=== PATIENT | female | born 1995 | race Caucasian/White ===

== ENCOUNTER 2019-06-29 23:52 | Emergency (ER) | payer OTHER ==
[2019-06-30] MEDS ORDERED: LIDOCAINE 1% W/EPI 1:100,000 MDV 20 ML VIAL ONE (01:14)
--- NOTE | 2019-06-30 01:16 | ER ---
Nurse's Notes [facility] Name: Nguyen Patel Age: 23 yrs Sex: Female : 1995 Arrival Date: 06/29/2019 Time: 23:55 Bed 5 Private MD: Diagnosis: Personal history of retained foreign body fully removed-implanon Presentation: 06/30 00:21 Presenting complaint: Patient states: Reports she tried to cut out her control ea implant out of her arm last night. States "this thing hurts I want it out". Transition of care: patient was not received from another setting of care. Onset of symptoms was June 30, 2019. Risk Assessment: Do you want to hurt yourself or someone else? Patient reports no desire to harm self or others. Initial Sepsis Screen: Does the patient meet any 2 criteria? No. Patient's initial sepsis screen is negative. Does the patient have a suspected source of infection? No. Patient's initial sepsis screen is negative. Care prior to arrival: None. 00:21 Method Of Arrival: Ambulatory ea 00:21 Acuity: FEDE 3 ea Triage Assessment: 00:24 General: Appears in no apparent distress. Behavior is appropriate for age. Pain: ea Complains of pain in left bicep. Neuro: Level of Consciousness is awake, alert, obeys commands, Oriented to person, place, time, situation. Cardiovascular: Patient's skin is warm and dry. Respiratory: Airway is patent Respiratory effort is even, unlabored, Respiratory pattern is regular, symmetrical. Derm: Reports pain in the left upper arm. Historical: - Allergies: 00:23 No Known Allergies; ea - Home Meds: 00:23 None [Active]; ea - PMHx: 00:23 None; ea - PSHx: 00:23 None; ea - Immunization history:: Adult Immunizations up to date. - Coronavirus screen:: The patient has NOT traveled to [place] in the past 14 days. Proceed with normal triage process as indicated. - Social history:: Smoking status: Patient denies any tobacco usage or history of. - Family history:: not pertinent. - Ebola Screening: : No symptoms or risks identified at this time. Screenin:22 Abuse screen: Denies threats or abuse. Nutritional screening: No deficits noted. ea Tuberculosis screening: No symptoms or risk factors identified. Fall Risk None identified. Assessment: 00:24 Reassessment: see triage assessment. ea 01:41 Reassessment: Patient and/or family updated on plan of care and expected duration. Pain ea level reassessed. Patient is alert, oriented x 3, equal unlabored respirations, skin warm/dry/pink. Discharge instruction given to patient, verbalized the understanding of instruction. Pt left ED ambulatory accompanied by mother. Vital Signs: 00:24 BP 130 / 88; Pulse 89; Resp 18; Temp 97.6; Pulse Ox 98% on R/A; Weight 108.86 kg; ea Height 5 ft. 4 in. (162.56 cm); Pain 8/10; 00:24 Body Mass Index 41.20 (108.86 kg, 162.56 cm) ea ED Course: 06/29 23:55 Patient arrived in ED. ag3 06/30 00:13 Rafael Jimenez, RN is Primary Nurse. jb4 00:22 Triage completed. ea 00:23 Arm band placed on right wrist. Patient placed in an exam room, on a stretcher, on ea pulse oximetry. 00:23 Patient has correct armband on for positive identification. Bed in low position. Call ea light in reach. 00:59 Humble Amaya MD is Attending Physician. dex 01:14 Octavio Garrison MD is Referral Physician. dex 01:39 No provider procedures requiring assistance completed. Patient did not have IV access ea during this emergency room visit. Administered Medications: 01:20 Drug: Lidocaine-Epinephrine -1%: (1:100,000) 3 ml {Note: administered by provider.} ea Volume: 20 ml; Route: Infiltration; 01:39 Drug: Neosporin Ointment 1 application Route: Topical; Site: wound; ea Outcome: 01:15 Discharge ordered by . dex 01:40 Discharged to home ambulatory, with family. ea 01:40 Condition: stable 01:40 Discharge instructions given to patient, Instructed on discharge instructions, follow up and referral plans. Demonstrated understanding of instructions, follow-up care. 01:41 Patient left the ED. ea Signatures: Humble Amaya MD MD cha Bryson, James, RN RN jb4 Marybel Montano RN RN Jossie Daily 3
--- NOTE | 2019-06-30 01:16 | EDPHYS ---
Physician Documentation [facility] Name: Nguyen Patel Age: 23 yrs Sex: Female : 1995 Arrival Date: 06/29/2019 Time: 23:55 Bed 5 Private MD: ED Physician Humble Amaya HPI: 06/30 01:08 This 23 yrs old Female presents to ER via Ambulatory with complaints of Arm dex Pain. 01:08 The patient or guardian complains of pain. The complaints affect the left tricep. dex Context: The problem was sustained at an unknown location. Onset: The symptoms/episode began/occurred 1 week(s) ago. Treatment prior to arrival includes: no previous treatment. Associated signs and symptoms: The patient has no apparent associated signs or symptoms. Historical: - Allergies: 00:23 No Known Allergies; ea - Home Meds: 00:23 None [Active]; ea - PMHx: 00:23 None; ea - PSHx: 00:23 None; ea - Immunization history:: Adult Immunizations up to date. - Coronavirus screen:: The patient has NOT traveled to [place] in the past 14 days. Proceed with normal triage process as indicated. - Social history:: Smoking status: Patient denies any tobacco usage or history of. - Family history:: not pertinent. - Ebola Screening: : No symptoms or risks identified at this time. ROS: 01:08 Constitutional: Negative for fever, chills, and weight loss, Eyes: Negative for injury, dex pain, redness, and discharge, ENT: Negative for injury, pain, and discharge, Neck: Negative for injury, pain, and swelling, Cardiovascular: Negative for chest pain, palpitations, and edema, Respiratory: Negative for shortness of breath, cough, wheezing, and pleuritic chest pain, Abdomen/GI: Negative for abdominal pain, nausea, vomiting, diarrhea, and constipation, Back: Negative for injury and pain, : Negative for injury, bleeding, discharge, and swelling, Skin: Negative for injury, rash, and discoloration, Neuro: Negative for headache, weakness, numbness, tingling, and seizure. 01:08 MS/extremity: Positive for pain, of the left tricep. Exam: 01:08 Constitutional: This is a well developed, well nourished patient who is awake, alert, dex and in no acute distress. Head/Face: Normocephalic, atraumatic. Eyes: Pupils equal round and reactive to light, extra-ocular motions intact. Lids and lashes normal. Conjunctiva and sclera are non-icteric and not injected. Cornea within normal limits. Periorbital areas with no swelling, redness, or edema. ENT: Nares patent. No nasal discharge, no septal abnormalities noted. Tympanic membranes are normal and external auditory canals are clear. Oropharynx with no redness, swelling, or masses, exudates, or evidence of obstruction, uvula midline. Mucous membranes moist. Neck: Trachea midline, no thyromegaly or masses palpated, and no cervical lymphadenopathy. Supple, full range of motion without nuchal rigidity, or vertebral point tenderness. No Meningismus. Chest/axilla: Normal chest wall appearance and motion. Nontender with no deformity. No lesions are appreciated. Cardiovascular: Regular rate and rhythm with a normal S1 and S2. No gallops, murmurs, or rubs. Normal PMI, no JVD. No pulse deficits. Respiratory: Lungs have equal breath sounds bilaterally, clear to auscultation and percussion. No rales, rhonchi or wheezes noted. No increased work of breathing, no retractions or nasal flaring. Abdomen/GI: Soft, non-tender, with normal bowel sounds. No distension or tympany. No guarding or rebound. No evidence of tenderness throughout. Back: No spinal tenderness. No costovertebral tenderness. Full range of motion. Female : Normal external genitalia. Skin: Warm, dry with normal turgor. Normal color with no rashes, no lesions, and no evidence of cellulitis. Neuro: Awake and alert, GCS 15, oriented to person, place, time, and situation. Cranial nerves II-XII grossly intact. Motor strength 5/5 in all extremities. Sensory grossly intact. Cerebellar exam normal. Normal gait. Psych: Awake, alert, with orientation to person, place and time. Behavior, mood, and affect are within normal limits. 01:08 Musculoskeletal/extremity: ROM: no acute changes, intact in all extremities, Circulation is intact in all extremities. Sensation intact. Compartment Syndrome exam of affected extremity: is normal. DVT Exam: no swelling, negative Homans' sign noted on exam, no appreciated bluish discoloration, no erythema, no increased warmth, pain, tenderness. Vital Signs: 00:24 BP 130 / 88; Pulse 89; Resp 18; Temp 97.6; Pulse Ox 98% on R/A; Weight 108.86 kg; ea Height 5 ft. 4 in. (162.56 cm); Pain 8/10; 00:24 Body Mass Index 41.20 (108.86 kg, 162.56 cm) ea Procedures: 01:12 Foreign Body Removal: implanon removal. [facility] 01:16 Foreign Body Removal: from the left arm, by incising to remove, Dressinx4s were dex used to dress the wound, The patient tolerated the removal well. MDM: 00:59 Patient medically screened. [facility] 01:12 Data reviewed: vital signs, nurses notes. [facility] 06/30 01:08 Order name: Vicryl, Sutures; Complete Time: 01:39 [facility] 06/30 01:08 Order name: Prolene, Sutures; Complete Time: 01:11 [facility] 06/30 01:08 Order name: Dressing - Wound; Complete Time: 01:11 [facility] 06/30 01:08 Order name: Gloves, Sterile; Complete Time: 01:39 [facility] 06/30 01:08 Order name: Setup Suture Tray; Complete Time: 01:39 [facility] Administered Medications: 01:20 Drug: Lidocaine-Epinephrine -1%: (1:100,000) 3 ml {Note: administered by provider.} ea Volume: 20 ml; Route: Infiltration; 01:39 Drug: Neosporin Ointment 1 application Route: Topical; Site: wound; ea Disposition: 06/30/19 01:15 Discharged to Home. Impression: Personal history of retained foreign body fully removed - implanon. - Condition is Stable. - Discharge Instructions: Foreign Body. - Medication Reconciliation Form, Thank You Letter, Antibiotic Education, Prescription Opioid Use form. - Follow up: Private Physician; When: 2 - 3 days; Reason: Recheck today's complaints, Continuance of care, Re-evaluation by your physician. Follow up: Octavio Garrison MD; When: 2 - 3 days; Reason: Recheck today's complaints, Re-evaluation by your physician. - Problem is new. - Symptoms have improved. Signatures: Humble Amaya MD MD cha Antunez, Elena, RN RN ea Corrections: (The following items were deleted from the chart) 01:41 01:15 06/30/2019 01:15 Discharged to Home. Impression: Personal history of retained ea foreign body fully removed - implanon. Condition is Stable. Forms are Medication Reconciliation Form, Thank You Letter, Antibiotic Education, Prescription Opioid Use. Follow up: Private Physician; When: 2 - 3 days; Reason: Recheck today's complaints, Continuance of care, Re-evaluation by your physician. Follow up: Octavio Garrison; When: 2 - 3 days; Reason: Recheck today's complaints, Re-evaluation by your physician. Problem is new. Symptoms have improved. dxe
[2019-06-30 02:03] VITALS: BP 130/88; TEMP 97.6; O2SAT 98
== END 2019-06-30 01:41 | disposition home or self-care (01) ==
LOC: ER 23:52
PROC: 0HCCXZZ Extirpation of Matter from Left Upper Arm Skin, External Approach (ICD-10-PCS; principal; 2019-06-30)
DX: M79.602 Pain in left arm (principal); Z87.821 Personal history of retained foreign body fully removed
CPT/HCPCS: 99283

== ENCOUNTER 2019-07-04 21:27 | Emergency (ER) | payer OTHER ==
--- OUTSIDE RECORDS SUMMARY | 2019-07-04 21:29 | XMS REPORT | Continuity of Care Document ---
:1995 Author Organization [facility] Address [address] [place] [address] Phone Unavailable Care Team Providers Name Role Phone PHYSICIAN, NO Primary Care Physician Unavailable Insurance Providers Guarantor Ihsan Patel Address [id number] [address] [place] [address] Email NONE Payer [facility] Policy Number [id number] Subscriber's Name Ihsan Patel Relationship Self / Same As Patient Group Number NA Group Name NA Advance Directives Directive Response Recorded Date/Time Patient/Family Given Education Material R/T Y - 10/01/18.....SBM 10/01/18 5 :05pm Directives? Chief Complaint and Reason for Visit Chief Complaint HEENTL Reason for Visit Viral pharyngitis Problems Active ProblemsNo active problem information available. Past Problems Medical Problem Onset Date Status Cellulitis Unknown Acute Viral pharyngitis Unknown Acute Medications No medication information available. Social History Smoking Status Start Date Stop Date Former smoker Hospital Discharge Instructions No hospital discharge instruction information available. Plan of Care Discharge Date 10/01/18 6:40pm Instructions/Education Provided Pharyngitis, [id number] Forms Provided Portal Welcome Letter Prescriptions See Medication Section Referrals NO PHYSICIAN Additional Instructions/Education DRINK PLENTY OF FLUIDS USE TYLENOL OR MOTRIN DIRECTED FOR PAIN. FOLLOW UP WITH YOUR PRIMARY CARE PROVIDER IN 2-3 RETURN TO THE ER IF YOUR SYMPTOMS WORSEN Functional Status No functional status information available. Allergies, Adverse Reactions, Alerts No known allergies. Immunizations No immunization information available. Vital Signs Acute Vital Signs Vital Response Date/Time Blood Pressure 124/80 mm Hg 10/01/2018 6:48pm Pulse Pulse Rate (adult) 101 beats per minute (60 - 100) 10/01/2018 6:48pm Respiratory Rate 16 breaths per minute (10 - 24) 10/01/2018 6:48pm Temperature Source Oral 10/01/2018 6:48pm Height 5 ft 4 in 10/01/2018 4:43pm Weight 210 lb 10/01/2018 4:43pm Body Mass Index 36.0 kg/m^2 10/01/2018 4:43pm Results No relevant diagnostic test, laboratory data and/or discharge summary information available. Procedures No procedure information available. Encounters Encounter Location Arrival/Admit Date Discharge/Depart Date Attending Provider Departed [place] 10/01/18 4:27pm 10/01/18 6:40pm VIGNESH REGALADO MD Emergency Room [facility] Recent Diagnosis
[2019-07-04] MEDS ORDERED: ALBUTEROL 2.5 MG/3 ML NEB SOL ONE (22:50)
[2019-07-04] MEDS ORDERED: PEN G BENZ LA 1.2MU/2ML SYRINGE IM ONE (23:09)
--- NOTE | 2019-07-05 01:50 | EDPHYS ---
Physician Documentation [facility] Name: Nguyen Patel Age: 23 yrs Sex: Female : 1995 Arrival Date: 07/04/2019 Time: 21:30 Bed 8 Private MD: ED Physician Gregg Fernandez HPI: 07/05 02:24 This 23 yrs old Female presents to ER via Ambulatory with complaints of Flu Symptoms. snw 02:24 The patient or guardian reports cough, flu symptoms, low-grade fever, myalgias, no snw appetite. Onset: The symptoms/episode began/occurred suddenly, 4 day(s) ago, and became persistent. Associated signs and symptoms: Pertinent positives: fever, sore throat. Severity of symptoms: At their worst the symptoms were moderate. It is unknown whether or not the patient has had similar symptoms in the past. The patient has been recently seen by a physician: with different complaint(s), control removed. 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 - Coronavirus screen:: The patient has NOT traveled to [place] in the past 14 days. The patient has NOT had contact with known/suspected case of Coronavirus?. - Social history:: Smoking status: Patient denies any tobacco usage or history of. - Ebola Screening: : Patient negative for fever greater than or equal to 101.5 degrees Fahrenheit, and additional compatible Ebola Virus Disease symptoms Patient denies exposure to infectious person Patient denies travel to an Ebola-affected area in the 21 days before illness onset No symptoms or risks identified at this time. ROS: 07/05 02:22 Eyes: Negative for injury, pain, redness, and discharge. snw Neck: Negative for injury, pain, and swelling, Cardiovascular: Negative for chest pain, palpitations, and edema. Abdomen/GI: Negative for abdominal pain, nausea, vomiting, diarrhea, and constipation, Back: Negative for injury and pain, : Negative for injury, bleeding, discharge, and swelling, MS/Extremity: Negative for injury and deformity, Skin: Negative for injury, rash, and discoloration, Neuro: Negative for headache, weakness, numbness, tingling, and seizure. Constitutional: Positive for chills, fever, malaise. ENT: Positive for sinus congestion, sore throat. Respiratory: Positive for cough. Exam: 02:21 Constitutional: This is a well developed, well nourished patient who is awake, alert, snw and in no acute distress. Head/Face: Normocephalic, atraumatic. Eyes: Pupils equal round and reactive to light, extra-ocular motions intact. Lids and lashes normal. Conjunctiva and sclera are non-icteric and not injected. Cornea within normal limits. Periorbital areas with no swelling, redness, or edema. Neck: Trachea midline, no thyromegaly or masses palpated, and no cervical lymphadenopathy. Supple, full range of motion without nuchal rigidity, or vertebral point tenderness. No Meningismus. Chest/axilla: Normal chest wall appearance and motion. Nontender with no deformity. No lesions are appreciated. Cardiovascular: Regular rate and rhythm with a normal S1 and S2. No gallops, murmurs, or rubs. Normal PMI, no JVD. No pulse deficits. Respiratory: Lungs have equal breath sounds bilaterally, clear to auscultation and percussion. No rales, rhonchi noted. Expiratory wheezes noted. + cough. No increased work of breathing, no retractions or nasal flaring. Abdomen/GI: Soft, non-tender, with normal bowel sounds. No distension or tympany. No guarding or rebound. No evidence of tenderness throughout. Back: No spinal tenderness. No costovertebral tenderness. Full range of motion. Skin: Warm, dry with normal turgor. Normal color with no rashes, no lesions, and no evidence of cellulitis. MS/ Extremity: Pulses equal, no cyanosis. Neurovascular intact. Full, normal range of motion. Neuro: Awake and alert, GCS 15, oriented to person, place, time, and situation. Cranial nerves II-XII grossly intact. Motor strength 5/5 in all extremities. Sensory grossly intact. Cerebellar exam normal. Normal gait. Psych: Awake, alert, with orientation to person, place and time. Behavior, mood, and affect are within normal limits. 02:21 ENT: External ear(s): are unremarkable, TM's: are normal, Nose: is normal, Mouth: is normal, Posterior pharynx: swelling, that is mild, erythema, that is moderate, Voice: is normal. Vital Signs: 07/04 21:41 BP 123 / 89; Pulse 88; Resp 16 S; Temp 97.8(TE); Pulse Ox 98% on R/A; Weight 127.01 kg ca1 (R); Height 5 ft. 3 in. (160.02 cm); 23:20 BP 120 / 87; Pulse 89; Resp 16; Pulse Ox 100% on R/A; jb4 21:41 Body Mass Index 49.60 (127.01 kg, 160.02 cm) ca1 MDM: 22:30 Patient medically screened. snw 07/05 02:23 Data reviewed: vital signs, nurses notes. Data interpreted: Pulse oximetry: on room air snw is 100 %. Interpretation: normal. Counseling: I had a detailed discussion with the patient and/or guardian regarding: the historical points, exam findings, and any diagnostic results supporting the discharge/admit diagnosis, lab results, the need for outpatient follow up, to return to the emergency department if symptoms worsen or persist or if there are any questions or concerns that arise at home. Special discussion: Based on the history and exam findings, there is no indication for further emergent testing or inpatient evaluation. I discussed with the patient/guardian the need to see the primary care provider for further evaluation of the symptoms. ED course: Mom states pt refuses to finish course of medications. Will give Bicillin. 07/04 22:30 Order name: PO challenge; Complete Time: 22:37 snw Administered Medications: 07/04 22:51 Drug: Albuterol 2.5 mg Route: Inhalation; jb4 23:18 Follow up: Response: No adverse reaction; Wheezing diminished jb4 23:12 Drug: Bicillin L-A 1.2 million units Route: IM; Site: right gluteus; jb4 23:17 Follow up: Response: Medication administered at discharge. jb4 Disposition: 07/05 04:01 Co-signature as Attending Physician, Gregg Fernandez MD. pkl Disposition: 07/04/19 23:01 Discharged to Home. Impression: Streptococcal pharyngitis. - Condition is Stable. - Discharge Instructions: Acute Bronchitis, Adult, Strep Throat. - Work release form, Medication Reconciliation Form, Thank You Letter, Antibiotic Education, Prescription Opioid Use form. - Follow up: Emergency Department; When: As needed; Reason: Worsening of condition. Follow up: Private Physician; When: 2 - 3 days; Reason: Recheck today's complaints, Continuance of care, Re-evaluation by your physician. Signatures: Gregg Fernandez MD MD pkl Therrien, Shelly, FOLDING RULES PRINTING MACHINE OPERATOR-C FOLDING RULES PRINTING MACHINE OPERATOR-Csnw Jennifer Garcia RN RN lp1 Rafael Jimenez, ISATU RN jb4 Carley White RN RN ca1 Corrections: (The following items were deleted from the chart) 07/04 23:30 23:01 07/04/2019 23:01 Discharged to Home. Impression: Streptococcal pharyngitis. lp1 Condition is Stable. Forms are Medication Reconciliation Form, Thank You Letter, Antibiotic Education, Prescription Opioid Use. Follow up: Emergency Department; When: As needed; Reason: Worsening of condition. Follow up: Private Physician; When: 2 - 3 days; Reason: Recheck today's complaints, Continuance of care, Re-evaluation by your physician. snw 07/05 02:22 02:21 Constitutional: This is a well developed, well nourished patient who is awake, snw alert, and in no acute distress. Head/Face: Normocephalic, atraumatic. Eyes: Pupils equal round and reactive to light, extra-ocular motions intact. Lids and lashes normal. Conjunctiva and sclera are non-icteric and not injected. Cornea within normal limits. Periorbital areas with no swelling, redness, or edema. Neck: Trachea midline, no thyromegaly or masses palpated, and no cervical lymphadenopathy. Supple, full range of motion without nuchal rigidity, or vertebral point tenderness. No Meningismus. Chest/axilla: Normal chest wall appearance and motion. Nontender with no deformity. No lesions are appreciated. Cardiovascular: Regular rate and rhythm with a normal S1 and S2. No gallops, murmurs, or rubs. Normal PMI, no JVD. No pulse deficits. Respiratory: Lungs have equal breath sounds bilaterally, clear to auscultation and percussion. No rales, rhonchi or wheezes noted. No increased work of breathing, no retractions or nasal flaring. Abdomen/GI: Soft, non-tender, with normal bowel sounds. No distension or tympany. No guarding or rebound. No evidence of tenderness throughout. Back: No spinal tenderness. No costovertebral tenderness. Full range of motion. Skin: Warm, dry with normal turgor. Normal color with no rashes, no lesions, and no evidence of cellulitis. MS/ Extremity: Pulses equal, no cyanosis. Neurovascular intact. Full, normal range of motion. Neuro: Awake and alert, GCS 15, oriented to person, place, time, and situation. Cranial nerves II-XII grossly intact. Motor strength 5/5 in all extremities. Sensory grossly intact. Cerebellar exam normal. Normal gait. Psych: Awake, alert, with orientation to person, place and time. Behavior, mood, and affect are within normal limits. snw
--- NOTE | 2019-07-05 01:51 | ER ---
Nurse's Notes [facility] Name: Nguyen Patel Age: 23 yrs Sex: Female : 1995 Arrival Date: 07/04/2019 Time: 21:30 Bed 8 Private MD: Diagnosis: Streptococcal pharyngitis Presentation: 07/04 21:39 Presenting complaint: Patient states: Body aches, cough and congestion x 5 days. ca1 Reports nausea. Denies vomiting and diarrhea. Denies fever but reports feeling hot. Transition of care: patient was not received from another setting of care. Onset of symptoms was July 04, 2019. Risk Assessment: Do you want to hurt yourself or someone else? Patient reports no desire to harm self or others. Initial Sepsis Screen: Does the patient meet any 2 criteria? No. Patient's initial sepsis screen is negative. Does the patient have a suspected source of infection? No. Patient's initial sepsis screen is negative. Care prior to arrival: None. 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 - Coronavirus screen:: The patient has NOT traveled to [place] in the past 14 days. The patient has NOT had contact with known/suspected case of Coronavirus?. - Social history:: Smoking status: Patient denies any tobacco usage or history of. - Ebola Screening: : Patient negative for fever greater than or equal to 101.5 degrees Fahrenheit, and additional compatible Ebola Virus Disease symptoms Patient denies exposure to infectious person Patient denies travel to an Ebola-affected area in the 21 days before illness onset No symptoms or risks identified at this time. Screenin:05 Abuse screen: Denies threats or abuse. Nutritional screening: No deficits noted. jb4 Tuberculosis screening: No symptoms or risk factors identified. Fall Risk None identified. Assessment: 22:00 General: Appears in no apparent distress. uncomfortable, Behavior is calm, cooperative, jb4 appropriate for age. Pain: Complains of pain in Generalized Pain does not radiate. Pain currently is 4 out of 10 on a pain scale. Quality of pain is described as aching. Neuro: Level of Consciousness is awake, alert, obeys commands, Oriented to person, place, time, situation. Cardiovascular: Patient's skin is warm and dry. Respiratory: Airway is patent Respiratory effort is even, unlabored, Respiratory pattern is regular, symmetrical. GI: No signs and/or symptoms were reported involving the gastrointestinal system. : No signs and/or symptoms were reported regarding the genitourinary system. EENT: Throat is clear is reddened has enlarged tonsils bilaterally with gag reflex present. Derm: Skin is intact, Skin is pink, warm \\T\\ dry. Musculoskeletal: Circulation, motion, and sensation intact. Range of motion: intact in all extremities. 22:52 Reassessment: Patient appears in no apparent distress at this time. Patient and/or jb4 family updated on plan of care and expected duration. Pain level reassessed. Patient is alert, oriented x 3, equal unlabored respirations, skin warm/dry/pink. Respiratory: Breath sounds are clear in right upper lobe, left upper lobe, left lower lobe, left posterior upper lobe, right posterior upper lobe and left posterior lower lobe Breath sounds with wheezes in right middle lobe, right lower lobe, right posterior middle lobe and right posterior lower lobe. 23:18 Reassessment: Refused to wait for shot time. Pt states" I have never had a reaction to jb4 Bicillin before." Verbalized understanding of d/c and follow up instructions. Ambulated out of ED with steady gait w/ mother. alert and orientedx 4. Vital Signs: 21:41 BP 123 / 89; Pulse 88; Resp 16 S; Temp 97.8(TE); Pulse Ox 98% on R/A; Weight 127.01 kg ca1 (R); Height 5 ft. 3 in. (160.02 cm); 23:20 BP 120 / 87; Pulse 89; Resp 16; Pulse Ox 100% on R/A; jb4 21:41 Body Mass Index 49.60 (127.01 kg, 160.02 cm) ca1 ED Course: 21:30 Patient arrived in ED. jg7 21:34 Yuliana Walsh FNP-C [facility]. snw 21:34 Gregg Fernandez MD is Attending Physician. snw 21:40 Triage completed. ca1 21:41 Arm band placed on right wrist. ca1 21:45 Rafael Jimenez, RN is Primary Nurse. jb4 22:05 Patient has correct armband on for positive identification. Bed in low position. Call jb4 light in reach. Side rails up X 1. Pulse ox on. NIBP on. 22:05 Flu and/or RSV swab sent to lab. Strep swab sent to lab. jb4 23:20 No provider procedures requiring assistance completed. Patient did not have IV access jb4 during this emergency room visit. Administered Medications: 22:51 Drug: Albuterol 2.5 mg Route: Inhalation; jb4 23:18 Follow up: Response: No adverse reaction; Wheezing diminished jb4 23:12 Drug: Bicillin L-A 1.2 million units Route: IM; Site: right gluteus; jb4 23:17 Follow up: Response: Medication administered at discharge. jb4 Outcome: 23:01 Discharge ordered by . snw 23:20 Discharged to home ambulatory, with family. jb4 23:20 Condition: stable 23:20 Discharge instructions given to patient, family, Instructed on discharge instructions, follow up and referral plans. Demonstrated understanding of instructions, follow-up care. 23:30 Patient left the ED. lp1 Signatures: Yuliana Walsh, CHILD CARE CENTER ADMINISTRATOR-C CHILD CARE CENTER ADMINISTRATOR-Csnw Jennifer Garcia RN RN lp1 Rafael Jimenez, RN ISATU jbCarley Hernandez RN RN ca1 Leslie Diaz jg7 Corrections: (The following items were deleted from the chart) 23:21 23:18 Reassessment: Refused to wait for shot time. Pt states" I have never had a jb4 reaction to Bicillin before." Verbalized understanding of d/c and follow up instructions. Ambulated out of ED with steady gait w/ mother. jb4
[2019-07-05 03:42] VITALS: TEMP 97.8
[2019-07-05 03:58] VITALS: BP 120/87; O2SAT 100
== END 2019-07-04 23:30 | disposition home or self-care (01) ==
LOC: ER 21:27
DX: J02.0 Streptococcal pharyngitis (principal)
CPT/HCPCS: 87081; 87804 ×2; 96372; 99284; J0561

== ENCOUNTER 2020-08-14 15:03 | Emergency (ER) | payer OTHER ==
--- NOTE | 2020-08-14 17:07 | ER ---
Nurse's Notes [facility] Name: Nguyen Patel Age: 24 yrs Sex: Female : 1995 Arrival Date: 08/14/2020 Time: 15:09 Bed Waiting Private MD: Diagnosis: Presentation: 08/14 15:22 Chief complaint: Patient states: Loss of taste of smell, MORAN, and sore throat for 1 day. ll1 Coronavirus screen: Client denies travel out of the [place] in the last 14 days. fatigue, headache, sore throat, loss of taste or smell, Client presents with at least one sign or symptom that may indicate coronavirus-19. Standard/surgical mask placed on the client. Ebola Screen: Patient denies travel to an Ebola-affected area in the 21 days before illness onset. Initial Sepsis Screen: Does the patient meet any 2 criteria? HR > 90 bpm. No. Patient's initial sepsis screen is negative. Does the patient have a suspected source of infection? Yes: Other: MORAN/loss of taste and smell. Risk Assessment: Do you want to hurt yourself or someone else? Patient reports no desire to harm self or others. Onset of symptoms was August 14, 2020. 15:22 Method Of Arrival: Ambulatory ll1 15:22 Acuity: FEDE 3 ll1 Historical: - PMHx: 15:25 Asthma; ll1 - Immunization history:: Flu vaccine is not up to date. - Social history:: Smoking status: Patient denies any tobacco usage or history of. Vital Signs: 15:22 BP 146 / 100; Pulse 111; Resp 17; Temp 97.5; Pulse Ox 97% ; Pain 6/10; ll1 ED Course: 15:09 Patient arrived in ED. ds1 15:16 Radha Sommers FNP-C is [facility]. kb 15:16 Pio Beltran MD is Attending Physician. kb 15:24 Triage completed. ll1 15:25 Arm band placed on Patient notified of wait time. ll1 Administered Medications: No medications were administered Outcome: 17:06 Patient left the ED. ll1 Signatures: Radha Sommers FNP-C FNP-Ckb Sanford, Demi ds1 Cayetano Escalona RN RN ll1
[2020-08-14 17:25] VITALS: BP 146/100; TEMP 97.5; O2SAT 97
== END 2020-08-14 17:06 | disposition left against medical advice (07) ==
LOC: ER 15:03
DX: R51.9 Headache, unspecified (principal); J02.9 Acute pharyngitis, unspecified; R43.9 Unspecified disturbances of smell and taste; Z53.21 Procedure and treatment not carried out due to patient leaving prior to being seen by health care provider
CPT/HCPCS: 99281

== ENCOUNTER → 2023-05-02 | Emergency (ER) | payer OTHER, SELFPAY ==
[~2023-05-02] MED LIST: IBUPROFEN 400 MG TAB ONE
--- OUTSIDE RECORDS SUMMARY | 2023-05-02 20:44 | XMS REPORT | Continuity of Care Document ---
Author Name Unknown Address [address] [place] [address] [facility] Address [address] [place] [address] Care Team Providers Care Clipper Machine Name Role Phone Radha Rivas Primary Care Physician [phone] Doctor Unassigned, [place] Attending Clinician U odette Alvarado MD, Victor M Attending Clinician [phone] NHI MARCELO Attending Clinician UnavailVICTOR M Quintana Attending Clinician Unavailable Alondra Keyes Attending Clinician [phone] Payers Payer Name Policy Type Policy Number Effective Date Expirati on Date Source Problems Condition Name Condition Details Condition Category Status Onset Date Resolution Date Last Treatment Date Treating Clinician Comments Source No known active problems No known active problems Disease [facility] Allergies, Adverse Reactions, Alerts Allergy Name Allergy Type Status Severity Reaction(s) Onset Date Inactive Date Treating Clinician Comments Source NO KNOWN ALLERGIE S Drug Class Active [facility] Social History Social Habit Start Date Stop Date Quantity Comments Source Exposure to SARS-CoV-2 (event) Not sure [facility] Tobacco use and exposure 2021-08-01 00:00:00 2021-08-01 00:00:00 Never used [facility] Sex Assigned At 1995 00:00:00 1995 00:00:00 [facility] Smoking Status Start Date Stop Date Source Never smoker [facility] Medications Ordered Medication Name Filled Medication Name Start Date Stop Date Current Medication? Ordering Clinician Indication Dosage Frequency Signature (SIG) Comments Components Source cariprazine (VRAYLAR) 3 mg Cap 2021-0 09-05 14:37: 33 Yes Vraylar 3 mg capsule Take 1 capsule every day by oral route. [facility] cariprazine (VRAYLAR) 3 mg Cap 2021-09-05 14:37: 33 Yes Vraylar 3 mg capsule Take 1 capsule every day by oral route. [facility] ketorolac (TORADOL) injection 30 mg 08-01 16:00: 00 08-01 15:33 :00 No [id number] 30mg [facility] ketorolac (TORADOL) injection 30 mg 08-01 16:00: 00 08-01 15:33 :00 No [id number] 30mg 30 mg, Intramuscu lar, ONCE, 1 dose, On Fri08/01/21 at 1100, Routine [facility] cariprazine (VRAYLAR) 3 mg Cap 08-01 09:47: 12 Yes Vraylar 3 mg capsule Take 1 capsule every day by oral route. [facility] cariprazine (VRAYLAR) 3 mg Cap 08-01 09:47: 12 Yes Vraylar 3 mg capsule Take 1 capsule every day by oral route. [facility] cariprazine (VRAYLAR) 3 mg Cap 08-01 09:47: 12 Yes Vraylar 3 mg capsule Take 1 capsule every day by oral route. [facility] methocarbam oL 500 mg tablet 08-01 00:00: 00 Yes [id number] 500mg Take 1 tablet by mouth 4 (four) times daily. [facility] gabapentin 100 mg capsule 08-01 00:00: 00 Yes [id number] 100mg Take 1 capsule by mouth 3 (three) times daily. [facility] methocarbam oL 500 mg tablet 08-01 00:00: 00 Yes [id number] 500mg Take 1 tablet by mouth 4 (four) times daily. [facility] gabapentin 100 mg capsule -23 00:00: 00 Yes [id number] 100mg Take 1 capsule by mouth 3 (three) times daily. [facility] gabapentin 100 mg capsule 2021-0 08-01 00:00: 00 Yes [id number] 100mg Take 1 capsule by mouth 3 (three) times daily. [facility] methocarbam oL 500 mg tablet 2021-0 08-01 00:00: 00 Yes [id number] 500mg Take 1 tablet by mouth 4 (four) times daily. [facility] gabapentin 100 mg capsule 2021-0 08-01 00:00: 00 Yes [id number] 100mg Take 1 capsule by mouth 3 (three) times daily. [facility] methocarbam oL 500 mg tablet 2021-0 08-01 00:00: 00 Yes [id number] 500mg Take 1 tablet by mouth 4 (four) times daily. [facility] gabapentin 100 mg capsule 2021-0 08-01 00:00: 00 Yes [id number] 100mg Take 1 capsule by mouth 3 (three) times daily. [facility] methocarbam oL 500 mg tablet 2021-0 08-01 00:00: 00 Yes [id number] 500mg Take 1 tablet by mouth 4 (four) times daily. [facility] busPIRone 5 mg tablet 2021-0 3-04 00:00: 00 Yes [facility] busPIRone 5 mg tablet 2-0 3-04 00:00: 00 Yes [facility] busPIRone 5 mg tablet 2-0 3-04 00:00: 00 Yes [facility] busPIRone 5 mg tablet 2-0 3-04 00:00: 00 Yes [facility] busPIRone 5 mg tablet 2-0 3-04 00:00: 00 Yes [facility] Vital Signs Vital Name Observation Time Observation Value Comments Swapna hermantorie Systolic blood pressure 2021-08-01 14:31:00 124 mm[Hg] [facility] Diastolic blood pressure 2021-08-01 14:31:00 84 mm[Hg] [facility] Heart rate 2021-08-01 14:31:00 105 /min [facility] Body temperature 2021-08-01 14:31:00 37.22 Toya [facility] Respiratory rate 2021-08-01 14:31:00 18 /min [facility] Body height 2021-08-01 14:31:00 165.1 cm [facility] Body weight 2021-08-01 14:31:00 105.325 kg [facility] BMI 2021-08-01 14:31:00 38.64 kg/m2 [facility] Oxygen saturation in Arterial blood by Pulse oximetry 2021-08-01 14:31:00 100 /min Payette o [facility] Procedures Procedure Date / Time Performed Performing Clinician Source AUTHORIZATION FOR RELEASE OF PHI 2021-09-12 05:01:00 Doctor Unassigned, [place] [facility] XR SACRUM AND COCCYX 2021-08-01 15:20:00 Victor M Alvarado [facility] XR LUMBAR SPINE 2 VW 2021-08-01 15:20:00 Victor M Alvarado [facility] POCT TEST 2021-08-01 14:58:00 [facility] 2021-08-01 14:57:00 Victor M Alvarado [facility] Encounters Start Date/Time End Date/Time Encounter Type Admission Type Attending Clinicians Care Facility Care Department Encounter ID Source 2021-09-12 00:00:00 2021-09-12 00:00:00 Orders Only Doctor Unassigned, [place] [facility] [id number] [facility] 2021-09-04 00:00:00 2021-09-04 00:00:00 Telephone Victor M Alvarado [facility] [id number]..[id number] [facility] 2021-08-15 10:15:00 2021-08-15 10:15:00 Outpatient NHI ANDRADE [facility] [id number] [facility] 2021-08-15 10:15:00 2021-08-15 10:15:00 Outpatient NHI ANDRADE [facility] [id number] [facility] 2021-08-01 09:44:43 2021-08-01 23:59:00 Hospital Encounter [facility] 1..840.114 [id number] [facility] 2021-08-01 09:44:42 2021-08-01 23:59:00 Outpatient VICTOR M JEAN-BAPTISTE [facility] [id number] [facility] 2021-08-01 09:44:42 2021-08-01 23:59:00 [facility] [id number] [facility] 2021-08-01 09:40:00 2021-08-01 09:52:07 Urgent Care Victor M Alvarado [place] [id number] [facility] Results Test Description Test Time Test Comments Results Result Co mments Source [facility]CIFIC [id number] 14:57:00* Test Item Value Reference Range Interpretation Comme nts POCT U SP GRAV (test code = 3255) 1.010 mg/dl 1.005-1.025 POCT PH U (test code = 3254) 7 mg/dl 5-8 POCT U LEUK EST (test code = 3263) + Negative - Negative POCT U NIT (test code = 3262) negative Negative - Negative POCT U PROT (test code = 3259) trace Negative - Negative POCT U GLU (test code = 3256) negative Negative - Negative POCT U KETONE (test code = 3258) negative Negative - Negative POCT U UROBILI (test code = 3260) normal 0.2-1 POCT U BILI (test code = 3261) negative Negative - Negative POCT U BLD (test code = 3257) trace Negative - Negative POCT U COLOR (test code = 3266) yellow POCT U APPEAR (test code = 3267) cloudy TU (test code = TU) accurate developme nt and interpretation of all internal controls Lab Interpretation (test code = 96677-0) Abnormal [facility]
[2023-05-02 21:56] LABS: SARS-CoV-2 Antigen Rapid Res Negative (Negative)
--- NOTE | 2023-05-02 22:16 | RAD REPORT ---
[facility] 9:56 pm CLINICAL HISTORY: COUGH COMPARISON: No comparisons TECHNIQUE: Portable AP view of the chest. FINDINGS: The lungs are clear. No pneumothorax or effusion. The cardiomediastinal contours are unre markable. IMPRESSION: No acute cardiopulmonary process.
--- NOTE | 2023-05-02 22:17 | ER ---
Nurse's Notes [facility] Name: Nguyen Patel Age: 27 yrs Sex: Female : 1995 Arrival Date: 05/02/2023 Time: 20:40 Bed 9 Private MD: Diagnosis: Influenza B, febrile illness Presentation: 05/02 20:54 Chief complaint: Patient states: FLU-LIKE S/S x2 DAYS. Coronavirus screen: At this bp time, the client does not indicate any symptoms associated with coronavirus-19. Ebola Screen: No symptoms or risks identified at this time. Initial Sepsis Screen: Does the patient meet any 2 criteria? No. Patient's initial sepsis screen is negative. Does the patient have a suspected source of infection? No. Patient's initial sepsis screen is negative. Risk Assessment: Do you want to hurt yourself or someone else? Patient reports no desire to harm self or others. Onset of symptoms is unknown. 20:54 Method Of Arrival: Ambulatory bp 20:54 Acuity: FEDE 4 bp Historical: - Allergies: 20:56 No Known Allergies; bp - Home Meds: 20:56 None [Active]; bp - PMHx: 20:56 Asthma; bp - Immunization history:: Adult Immunizations up to date. - Social history:: Smoking status: unknown. Screenin:07 [facility] ED Fall Risk Assessment (Adult) History of falling in the last 3 months, me1 including since admission No falls in past 3 months (0 pts) Confusion or Disorientation No (0 pts) Intoxicated or Sedated No (0 pts) Impaired Gait No (0 pts) Mobility Assist Device Used No (0 pt) Altered Elimination No (0 pt) Score/Fall Risk Level 0 - 2 = Low Risk Maintained a safe environment, Hourly rounding (assess needs \T\ fall precautionary measures) done, Used ambulatory aids as needed (educated on \T\ assisted with). Abuse screen: Denies threats or abuse. Nutritional screening: No deficits noted. Tuberculosis screening: No symptoms or risk factors identified. Assessment: 22:07 General: Appears uncomfortable, ill, Behavior is calm, cooperative, appropriate for me1 age, Reports chills for fever for feeling ill for fatigue for 2-3 days, cough, congestion, body aches, fever, chills x 2 days. Pain: Complains of pain in generalized Pain currently is 6 out of 10 on a pain scale. Quality of pain is described as aching, Pain began gradually, 2-3 days ago. Is intermittent. Neuro: Level of Consciousness is awake, alert, obeys commands, Oriented to person, place, time, situation, Appropriate for age. Cardiovascular: Capillary refill < 3 seconds Patient's skin is warm and dry. Respiratory: Airway is patent Respiratory effort is even, unlabored, Respiratory pattern is regular, symmetrical. EENT: Throat is reddened. 22:35 Respiratory: Reports cough that is persistent Breath sounds are clear bilaterally. me1 Vital Signs: 20:54 BP 139 / 90; Pulse 125; Resp 24; Temp 98.6; Pulse Ox 100% ; Weight 117.93 kg; Height 5 bp ft. 5 in. ; 21:16 BP 121 / 91; Pulse 123; Resp 19; Temp 100.1(O); Pulse Ox 98% on R/A; me1 22:10 BP 136 / 63; Pulse 120; Resp 20; Pulse Ox 99% on R/A; me1 22:34 BP 128 / 81; Pulse 110; Resp 19; Temp 100(O); Pulse Ox 98% on R/A; me1 20:54 Body Mass Index 43.27 (117.93 kg, 165.1 cm) bp ED Course: 20:44 Patient arrived in ED. gm2 20:56 Triage completed. bp 20:56 Arm band placed on. bp 21:02 Ron Prieto MD is Attending Physician. sp3 21:09 Antionette Guerrero, RN is Primary Nurse. me1 21:16 SARS RAPID Sent. me1 21:16 Flu Sent. me1 21:58 CXR XRAY In Process Unspecified. EDMS 22:07 Patient has correct armband on for positive identification. Bed in low position. Call me1 light in reach. Side rails up X 1. Provided Education on: POC. Verbalized understanding.. 22:07 No provider procedures requiring assistance completed. Patient did not have IV access me1 during this emergency room visit. Administered Medications: 22:06 Drug: Ibuprofen PO 800 mg PO once Route: PO; me1 22:20 Follow up: Response: No adverse reaction me1 Medication: 22:07 VIS not applicable for this client. me1 Outcome: 22:17 Discharge ordered by . sp3 22:35 Discharged to home ambulatory, with family, me1 22:35 Condition: stable 22:35 Discharge instructions given to patient, family, Instructed on discharge instructions, follow up and referral plans. Demonstrated understanding of instructions, follow-up care, 22:36 Patient left the ED. me1 Signatures: Dispatcher [employer] Petros Xiong RN RN bp Ron Prieto MD MD sp3 Antionette Guerrero RN RN ut1 Albertina Hernadez 2 Corrections: (The following items were deleted from the chart) 21:19 21:16 BP 121 / 91; Pulse 123bpm; Resp 19bpm; Pulse Ox 98% RA; Temp 101.1F Oral; me1 me1 22:07 20:54 Chief complaint: Patient states: FLU-LIKE S/S x2 DAYS bp me1
--- NOTE | 2023-05-02 22:17 | EDPHYS ---
Physician Documentation [facility] Name: Nguyen Patel Age: 27 yrs Sex: Female : 1995 Arrival Date: 05/02/2023 Time: 20:40 Bed 9 Private MD: ED Physician Ron Prieto HPI: 05/02 21:08 This 27 yrs old Female presents to ER via Ambulatory with complaints of Flu Symptoms, sp3 Fever, Sore Throat. 21:08 27-year-old female with history of asthma presents to the ED with upper respiratory sp3 infection symptoms, cough, sore throat, body aches for the last 4 to 5 days. She denies shortness of breath or chest pain, vomiting, diarrhea, abdominal pain, headache, neck pain, neck stiffness, known sick contacts, travel history, or any other signs or symptoms on ROS at this time.. Historical: - Allergies: 20:56 No Known Allergies; bp - Home Meds: 20:56 None [Active]; bp - PMHx: 20:56 Asthma; bp - Immunization history:: Adult Immunizations up to date. - Social history:: Smoking status: unknown. ROS: 21:09 Constitutional: Negative for fever, chills, and weight loss, Eyes: Negative for injury, sp3 pain, redness, and discharge, Neck: Negative for injury, pain, and swelling, Cardiovascular: Negative for chest pain, palpitations, and edema, Abdomen/GI: Negative for abdominal pain, nausea, vomiting, diarrhea, and constipation, Back: Negative for injury and pain, MS/Extremity: Negative for injury and deformity, Skin: Negative for injury, rash, and discoloration, Neuro: Negative for headache, weakness, numbness, tingling, and seizure, Psych: Negative for depression, anxiety, suicide ideation, homicidal ideation, and hallucinations, Allergy/Immunology: Negative for hives, rash, and allergies, Endocrine: Negative for neck swelling, polydipsia, polyuria, polyphagia, and marked weight changes, Hematologic/Lymphatic: Negative for swollen nodes, abnormal bleeding, and unusual bruising, 21:09 All other systems are negative, Exam: 21:11 Head/Face: Normocephalic, atraumatic. Eyes: Pupils equal round and reactive to light, sp3 extra-ocular motions intact. Lids and lashes normal. Conjunctiva and sclera are non-icteric and not injected. Cornea within normal limits. Periorbital areas with no swelling, redness, or edema. Neck: Trachea midline, no thyromegaly or masses palpated, and no cervical lymphadenopathy. Supple, full range of motion without nuchal rigidity, or vertebral point tenderness. No Meningismus. Chest/axilla: Normal chest wall appearance and motion. Nontender with no deformity. No lesions are appreciated. Abdomen/GI: Soft, non-tender, with normal bowel sounds. No distension or tympany. No guarding or rebound. No evidence of tenderness throughout. Back: No spinal tenderness. No costovertebral tenderness. Full range of motion. Skin: Warm, dry with normal turgor. Normal color with no rashes, no lesions, and no evidence of cellulitis. MS/ Extremity: Pulses equal, no cyanosis. Neurovascular intact. Full, normal range of motion. Neuro: Awake and alert, GCS 15, oriented to person, place, time, and situation. Cranial nerves II-XII grossly intact. Motor strength 5/5 in all extremities. Sensory grossly intact. Cerebellar exam normal. Normal gait. Psych: Awake, alert, with orientation to person, place and time. Behavior, mood, and affect are within normal limits. 21:11 ENT: Mild tachycardia noted. Pharyngeal erythema noted without uvular shift or peritonsillar swelling. Active cough.. Vital Signs: 20:54 BP 139 / 90; Pulse 125; Resp 24; Temp 98.6; Pulse Ox 100% ; Weight 117.93 kg; Height 5 bp ft. 5 in. ; 21:16 BP 121 / 91; Pulse 123; Resp 19; Temp 100.1(O); Pulse Ox 98% on R/A; me1 22:10 BP 136 / 63; Pulse 120; Resp 20; Pulse Ox 99% on R/A; me1 22:34 BP 128 / 81; Pulse 110; Resp 19; Temp 100(O); Pulse Ox 98% on R/A; me1 20:54 Body Mass Index 43.27 (117.93 kg, 165.1 cm) bp MDM: 21:03 Patient medically screened. sp3 21:12 Data reviewed: vital signs, nurses notes, lab test result(s), radiologic studies. ED sp3 course: 27-year-old female with upper respiratory infection symptoms. Differential diagnosis includes viral illness, COVID-19, influenza, pneumonia, bronchitis, among others. I am not highly suspicious for sepsis, shock, meningitis, encephalitis, or any other critical pathology at this time. Workup will include chest x-ray and swabs with possible Decadron injection if indicated. Disposition pending workup and patient course.. 22:15 ED course: Influenza B positive. sp3 05/02 21:07 Order name: Flu; Complete Time: 22:13 sp3 05/02 21:07 Order name: SARS RAPID; Complete Time: 22:03 sp3 05/02 21:07 Order name: CXR XRAY; Complete Time: 22:18 sp3 05/02 21:07 Order name: Recheck Vital Signs; Complete Time: 22:36 sp3 05/02 22:03 Order name: PO challenge: PO Hydration; Complete Time: 22:06 sp3 Administered Medications: 22:06 Drug: Ibuprofen PO 800 mg PO once Route: PO; me1 22:20 Follow up: Response: No adverse reaction me1 Disposition Summary: 05/02/23 22:17 Discharge Ordered Notes: Location: Home sp3 Condition: Stable sp3 Diagnosis - Influenza B, febrile illness sp3 Followup: sp3 - With: Private Physician - When: Upon discharge from the Emergency Department - Reason: Continuance of care Discharge Instructions: - Discharge Summary Sheet sp3 - Influenza, Adult sp3 Forms: - Medication Reconciliation Form sp3 - Thank You Letter sp3 - Antibiotic Education sp3 - Prescription Opioid Use sp3 - Patient Portal Instructions sp3 - Leadership Thank You Letter sp3 Signatures: Dispatcher [employer] Petros Xiong, Ron Leroy RN, MD MD sp3 Antionette Guerrero RN RN me1
[2023-05-02 23:04] VITALS: BP 128/81; TEMP 100; O2SAT 98
== END ==
LOC: ER 20:40
DX: J10.1 Influenza due to other identified influenza virus with other respiratory manifestations (principal); Z11.52 Encounter for screening for COVID-19
CPT/HCPCS: 36415; 71045; 87804; 87811; 99283

== ENCOUNTER 2024-04-29 03:56 | Emergency (ER) | payer SELFPAY ==
--- OUTSIDE RECORDS SUMMARY | 2024-04-29 03:59 | XMS REPORT | Continuity of Care Document ---
Author Name Unknown Address [address] [place] [address] [facility] Address [address] [place] [address] Care Team Providers Care Filling Room Operator Name Role Phone KRIS VELASQUEZ Primary Care Physician Unavailab duran Doctor Unassigned, [place] Attending Clinician U Victor M Fajardo MD Attending Clinician NHI MARCELO Attending Clinician UnavailVICTOR M Quintana Attending Clinician Unavailable Alondra Keyes Attending Clinician Payers Payer Name Policy Type Policy Number Effective Date Expirati on Date Source Problems Condition Name Condition Details Condition Category Status Onset Date Resolution Date Last Treatment Date Treating Clinician Comments Source No known active problems No known active problems Disease [facility] Allergies, Adverse Reactions, Alerts Allergy Name Allergy Type Status Severity Reaction(s) Onset Date Inactive Date Treating Clinician Comments Source NO KNOWN ALLERGIE S Drug Class Active [facility] Social History Social Habit Start Date Stop Date Quantity Comments Source Exposure to SARS-CoV-2 (event) Not sure [facility] Tobacco use and exposure 2021-08-01 00:00:00 2021-08-01 00:00:00 Never used [facility] Sex Assigned At 1995 00:00:00 1995 00[birth year]:00 [facility] Smoking Status Start Date Stop Date Source Never smoker [facility] Medications Ordered Medication Name Filled Medication Name Start Date Stop Date Current Medication? Ordering Clinician Indication Dosage Frequency Signature (SIG) Comments Components Source cariprazine (VRAYLAR) 3 mg Cap 09-05 14:37: 33 Yes Vraylar 3 mg capsule Take 1 capsule every day by oral route. [facility] ketorolac (TORADOL) injection 30 mg 08-01 16:00: 00 08-01 15:33 :00 No [id number] 30mg [facility] cariprazine (VRAYLAR) 3 mg Cap 08-01 09:47: 12 Yes Vraylar 3 mg capsule Take 1 capsule every day by oral route. [facility] methocarbam oL 500 mg tablet 08-01 00:00: 00 Yes [id number] 500mg Take 1 tablet by mouth 4 (four) times daily. [facility] gabapentin 100 mg capsule 08-01 00:00: 00 Yes [id number] 100mg Take 1 capsule by mouth 3 (three) times daily. [facility] busPIRone 5 mg tablet 07-13 00:00: [address] [facility] Vital Signs Vital Name Observation Time Observation Value Comments [facility] Systolic blood pressure 2021-08-01 14:31:00 124 mm[Hg] [facility] Diastolic blood pressure 2021-08-01 14:31:00 84 mm[Hg] [facility] Heart rate 2021-08-01 14:31:00 105 /min [facility] Body temperature 2021-08-01 14:31:00 37.22 Toya [facility] Respiratory rate 2021-08-01 14:31:00 18 /min [facility] Body height 2021-08-01 14:31:00 165.1 cm [facility] Body weight 2021-08-01 14:31:00 105.325 kg [facility] BMI 2021-08-01 14:31:00 38.64 kg/m2 [facility] Oxygen saturation in Arterial blood by Pulse oximetry 2021-08-01 14:31:00 100 /min [facility] Procedures Procedure Date / Time Performed Performing Clinician Source AUTHORIZATION FOR RELEASE OF PHI 2021-09-12 05:01:00 Doctor Unassigned, [place] [facility] XR SACRUM AND COCCYX 2021-08-01 15:20:00 Victor M Rivera [facility] XR LUMBAR SPINE 2 VW 2021-08-01 15:20:00 Victor M Rivera [facility] POCT TEST 2021-08-01 14:58:00 [facility] 2021-08-01 14:57:00 Victor M Rivera [facility] Encounters Start Date/Time End Date/Time Encounter Type Admission Type Attending Clinicians Care Facility Care Department Encounter ID Source 2021-09-12 00:00:00 2021-09-12 00:00:00 Orders Only Doctor Unassigned, [place] [facility] [id number] [facility] 2021-09-04 00:00:00 2021-09-04 00:00:00 [facility] [id number] [facility] 2021-08-15 10:15:00 2021-08-15 10:15:00 Outpatient NHI ANDRADE [facility] [id number] [facility] 2021-08-15 10:15:00 2021-08-15 10:15:00 Outpatient NHI ANDRADE [facility] [id number] [facility] 2021-08-01 09:44:43 2021-08-01 23:59:00 Hospital Encounter Christiano [facility] WILL?[facility] [id number] [facility] 2021-08-01 09:44:42 2021-08-01 23:59:00 Outpatient R VICTOR M [facility]A [facility] [id number] [facility] 2021-08-01 09:44:42 2021-08-01 23:59:00 Hospital Encounter Victor M Rivera [facility] [id number] [facility] 2021-08-01 09:40:00 2021-08-01 09:52:07 Urgent Care Victor M Rivera, Alondra [facility] [id number] [facility] Results Test Description Test Time Test Comments Results Result Co mments Source [facility] SPECIFIC [id number] 14:57:00* Test Item Value Reference Range Interpretation [...] internal controls Lab Interpretation (test code = 46985-4) Abnormal [facility]
[2024-04-29] MEDS ORDERED: CEFTRIAXONE 1000 MG/VIAL ONE (04:22)
[2024-04-29] MEDS ORDERED: ONDANSETRON 4 MG/2 ML VIAL ONE ×2 (04:23→04:59)
[2024-04-29] MEDS ORDERED: METRONIDAZOLE 500mg IVPB 500 MG/100 ML BAG IV ONE (04:23)
[2024-04-29] MEDS ORDERED: NA CHLORIDE 0.9% 1,000 ML ONE (04:23)
[2024-04-29] MEDS ORDERED: NA CHLORIDE 0.9% 100 ML ONE (04:24)
[2024-04-29] MEDS ORDERED: IBUPROFEN 400 MG TAB ONE (04:27)
[2024-04-29] MEDS ORDERED: NA CHLORIDE 0.9% 2,000 ML ONE (04:39)
[2024-04-29 04:47] LABS: Urine Bacteria 20-50 /HPF (<20); Urine Bilirubin NEGATIVE (Negative); Urine Blood Trace (Negative); Urine Clarity Extremely Turbid (Clear); Urine Color Yellow (Yellow); Urine Crystals Unidentified Few /HPF (None Seen); Urine Culture Reflex Order REFLEXED; Urine Glucose NEGATIVE (Negative); Urine Ketones NEGATIVE (Negative); Urine Micro Reflex YN NO BILL MICROSCOPIC; Urine Mucus Slight /HPF (None Seen); Urine Nitrite NEGATIVE (Negative); Urine Protein TRACE (Negative); Urine Urobilinogen Normal (Normal); Urine WBC >50 /HPF (<5); Urine WBC Clump Occasional /HPF (None Seen)
[2024-04-29 04:58] LABS: Absolute Basophils 0.1 K/uL (0-0.5); Absolute Lymphocytes (CBC) 0.4 K/uL (0.7-4.9); Absolute Monocytes 0.8 K/uL (0.1-1.3); Absolute Neutrophil 10.9 K/uL (1.8-8.0); Basophils % 0.4 % (0-1.3); Eosinophils % 0.2 % (0-4.4); Hematocrit 35.3 % (36.0-45.0); Hemoglobin 11.3 g/dL (12.0-15.0); Lymphocytes % 3.5 % (15.3-44.8); MCH 23.9 pg (27.0-35.0); MCV 74.9 fL (80-100); MPV 10.1 fL (7.6-11.3); Monocytes % 6.5 % (3.3-12.3); Neutrophils % 89.4 % (41.7-73.7); Nucleated Red Blood Cells % 0.1 % (0-0); Platelets 184 thou/uL (152-406); RBC Red Blood Cell Count 4.71 M/uL (3.86-4.86); Red Cell Distribution Width 16.8 % (12.1-15.2)
[2024-04-29] MEDS ORDERED: MAGNES/ALUMIN/SIMET 30ML UCUP ONE (04:59)
[2024-04-29] MEDS ORDERED: KETOROLAC 30 MG/ML INJ ONE (04:59)
[2024-04-29] MEDS ORDERED: METOCLOPRAMIDE 10 MG/2mL INJ ONE (04:59)
[2024-04-29] MEDS ORDERED: FAMOTIDINE 20 MG/2 ML VIAL IV ONE (05:00)
[2024-04-29 05:12] LABS: PTT, Activated Partial Thromb 30.2 SECONDS (24.3-36.9); Protime INR 1.26
[2024-04-29 05:17] LABS: Albumin 3.1 g/dL (3.4-5.0); Albumin/Globulin Ratio 0.7 (1.1-1.8); Anion Gap 9.3 mEq/L (5.0-15.0); Bilirubin Total 0.6 mg/dL (0.2-1.0); Globulin 4.2 g/dL (2.3-3.5); Potassium 3.3 mEq/L (3.5-5.1); Protein, Total 7.3 g/dL (6.4-8.2)
--- NOTE | 2024-04-29 06:47 | RAD REPORT ---
CLINICAL HISTORY: Back pain. COMPARISON: None. 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 FINDINGS: Chest: The heart is normal in size. There is no pericardial effusion. Intrathoracic lymph nodes are n ot enlarged. There is no pleural effusion, pleural thickening or pneumothorax. Central airways are patent. There a re small bilateral upper lobe calcified granulomas. Abdomen: The liver is normal in appearance. There is no biliary dilatation. Gallbladder is normal in appearance. The pancreas and spleen are normal in appearance. There is 2 mm lower pole right renal calculus. Adrenal glands and left kidney are normal. There is no hydronephrosis. Abdominal aorta is normal in course and caliber without aneurysm. There is no free air. There is no r etroperitoneal adenopathy. Pelvis: There is no bowel obstruction. Urinary bladder is unremarkable. There is no free fluid. Left ovarian cyst measures 4.4 cm. Uterus is normal in size. Appendix is normal. Skeleton: There are no acute osseous findings. No suspicious bony lesions. IMPRESSION: Minimal right nephrolithiasis without hydronephrosis. Left ovarian simple-appearing cyst measuring 4.4 cm. No follow-up imaging is recommended. Reference: JACR 2019;17(2):248-254 Electronically signed by: Phi Edwards MD 04/29/2024 06:44 AM POLICE RADIO DISPATCHER Due to temporary technical issues with the PACS/MobiPixie reporting system, reports are being rod d by the in-house radiologist without review as a courtesy to ensure prompt reporting the interpreting radiologist is fully responsible for the content of the report. Transcribed Date/Time: 04/29/2024 6:47 AM
[2024-04-29 07:26] LABS: Blood Morphology Comment NOT SEEN (NOT SEEN); Platelet Estimate ADEQ; White Blood Cell Scan OK (OK)
--- NOTE | 2024-04-29 07:35 | EDPHYS ---
Physician Documentation [facility] Name: Nguyen Patel Age: 28 yrs Sex: Female : 1995 Arrival Date: 04/29/2024 Time: 03:56 Bed 16 Private MD: ED Physician Milan Doe HPI: 04/29 07:26 This 28 yrs old Female presents to ER via Ambulatory with complaints of Back sp4 Pain, Fever. 04/30 02:58 28-year-old female presents with fever dysuria and back pain starting 3 days ago. sp4 Historical: - Allergies: 04/29 04:12 No Known Allergies; kl - Home Meds: 04:12 Azo-Standard Oral [Active]; Acetaminophen Oral [Active]; kl - PMHx: 04:12 Asthma; kl - PSHx: 04:12 None; kl - Immunization history:: Adult Immunizations not immunized. - Infectious Disease History:: Denies. - Social history:: Smoking status: Reported history of juuling and/or vaping. - Family history:: not pertinent. ROS: 04/30 02:58 Constitutional: Positive fever, positive back pain, positive dysuria, sp4 All other systems are negative, Exam: 04/29 07:32 Constitutional: This is a well developed, well nourished patient who is awake, alert, sp4 patient is febrile tachycardic ill-appearing but nontoxic. Head/Face: Normocephalic, atraumatic. Eyes: Pupils equal round and reactive to light, extra-ocular motions intact. Lids and lashes normal. Conjunctiva and sclera are not injected. Cornea within normal limits. Periorbital areas with no swelling, redness, or edema. ENT: Nares patent. No nasal discharge, no septal abnormalities noted. Tympanic membranes are normal and external auditory canals are clear. Oropharynx with no redness, swelling, or masses, exudates, or evidence of obstruction, uvula midline. Mucous membranes moist. Neck: Trachea midline, no thyromegaly or masses palpated, and no cervical lymphadenopathy. Supple, full range of motion without nuchal rigidity, or vertebral point tenderness. Chest/axilla: Normal chest wall appearance and motion. Nontender with no deformity. No lesions are appreciated. Cardiovascular: Regular rate and rhythm with a normal S1 and S2. No gallops, murmurs, or rubs. Normal PMI, no JVD. No pulse deficits. Respiratory: Lungs have equal breath sounds bilaterally, clear to auscultation and percussion. No rales, rhonchi or wheezes noted. No increased work of breathing, no retractions or nasal flaring. Abdomen/GI: Soft, with normal bowel sounds. No distension or tympany. No guarding or rebound. No evidence of tenderness throughout. Back: No spinal tenderness. No costovertebral tenderness. Skin: Warm, dry with normal turgor. Normal color with no rashes, no lesions, and no evidence of cellulitis. MS/ Extremity: Pulses equal, no cyanosis. Neurovascular intact. Full, normal range of motion. Neuro: Awake and alert, GCS 15, oriented to person, place, time, and situation. Cranial nerves II-XII grossly intact. Motor strength 5/5 in all extremities. Sensory grossly intact. 04/30 02:58 ECG was reviewed by the Attending Physician. EKG at 0 432 sinus tachycardia rate 112 sp4 Vital Signs: 04/29 04:10 BP 121 / 48; Pulse 130; Resp 20; Temp 100.2(O); Pulse Ox 98% on R/A; Weight 113.4 kg kl (R); Height 5 ft. 2 in. ; Pain 9/10; 05:16 BP 111 / 72; Pulse 110; Resp 18; Temp 99(O); Pulse Ox 99% on R/A; Pain 8/10; rg5 06:41 BP 94 / 59; Pulse 80; Resp 17; Pulse Ox 100% on R/A; Pain 0/10; rg5 07:48 BP 115 / 68; Pulse 78; Resp 16; Pulse Ox 99% ; ko1 04:10 Body Mass Index 45.73 (113.40 kg, 157.48 cm) kl 04:10 Pain Scale: Adult kl 05:16 Pain Scale: Adult rg5 06:41 Pain Scale: Adult rg5 Yves Coma Score: 07:32 Eye Response: spontaneous(4). Motor Response: obeys commands(6). Verbal Response: sp4 oriented(5). Total: 15. MDM: 04:09 Medical Screening Exam initiated sp4 07:28 Differential diagnosis: Peptic Ulcer Pyelonephritis Renal Infarction. Data sp4 reviewed: vital signs, nurses notes, lab test result(s), radiologic studies, CT scan. Consideration of Admission/Observation Escalation of care including admission/observation considered. ED course: 28-year-old female presents with 3 days of burning with urination. Patient also reported developing fever 1 day ago associated with back pain feeling unwell overall. ED course: CT did not reveal signs of pyelonephritis. Patient has advanced UTI. Patient is stable for discharge home with p.o. cephalexin for UTI with ondansetron for nausea and ibuprofen for fever and pain.. 04/29 04:09 Order name: Urinalysis W/Microscopic; Complete Time: 07:19 [facility] 04/29 04:09 Order name: Test, Urine; Complete Time: 07:19 [facility] 04/29 04:13 Order name: Blood Culture Adult (2) [facility] 04/29 04:13 Order name: CBC with Diff; Complete Time: 07:36 [facility] 04/29 04:13 Order name: CMP; Complete Time: 07:19 [facility] 04/29 04:13 Order name: Lactate w/ 2H reflex if indic.; Complete Time: 07:19 [facility] 04/29 04:13 Order name: Protime (+inr); Complete Time: 07:19 [facility] 04/29 04:13 Order name: Ptt, Activated; Complete Time: 07:19 [facility] 04/29 04:51 Order name: Urine Culture [facility] 04/29 05:13 Order name: CBC Smear Scan; Complete Time: 07:36 [facility] 04/29 04:14 Order name: CT Chest Abdomen Pelvis W/O Contrast; Complete Time: 03:02 [facility] 04/29 04:13 Order name: Accucheck; Complete Time: 04:32 [facility] 04/29 04:13 Order name: Cardiac monitoring; Complete Time: 04:32 [facility] 04/29 04:13 Order name: EKG - Nurse/Tech; Complete Time: 04:32 [facility] 04/29 04:13 Order name: IV Saline Lock - Large Bore; Complete Time: 04:32 [facility] 04/29 04:13 Order name: Labs collected and sent; Complete Time: 04:32 [facility] 04/29 04:13 Order name: O2 Per Protocol; Complete Time: 04:32 [facility] 04/29 04:13 Order name: O2 Sat Monitoring; Complete Time: 04:32 sp4 04/29 04:13 Order name: Vital Signs; Complete Time: :32 sp4 EC:32 Rate is 112 beats/min. Rhythm is regular, Sinus tachycardia. QRS Dania is Normal. IN sp4 interval is normal. QRS interval is normal. QT interval is normal. No Q waves. T waves are Normal. No ST changes noted. Clinical impression: No evidence of ischemia. Interpreted by me. Reviewed by me. Administered Medications: 04:36 Drug: NS 0.9% IV (30 ml/kg) 30 ml/kg IV at bolus once; Sepsis Protocol; to be given as kl a bolus over 90 minutes Route: IV; Rate: bolus; Site: right antecubital; 07:30 Follow up: Response: No adverse reaction; IV Status: Completed infusion; IV Intake: ko1 2000ml 04:36 Drug: Ondansetron IVP 4 mg IVP once; over 2 minutes Route: IVP; Site: right antecubital;kl 05:48 Follow up: Response: No adverse reaction rg5 04:38 Drug: Rocephin - Rocephin (cefTRIAXone) IVPB 1 grams IVPB once over 30 mins; (mix in 50 kl mL NS) Route: IVPB; Infused Over: 30 mins; Site: right antecubital; 05:15 Follow up: IV Status: Completed infusion; IV Intake: 100ml rg5 04:47 Drug: Ibuprofen PO 800 mg PO once Route: PO; rg5 05:15 Follow up: Response: No adverse reaction; Pain is decreased rg5 04:55 Drug: metoCLOPramide IVP 10 mg IVP once; over 1 to 2 minutes Route: IVP; Site: right rg5 antecubital; 05:48 Follow up: Response: No adverse reaction rg5 05:00 Drug: Ketorolac IVP 30 mg IVP once Route: IVP; Site: right antecubital; rg5 05:48 Follow up: Response: No adverse reaction; Pain is decreased rg5 05:00 Drug: Famotidine IVP 20 mg IVP once; dilute with 10 mL 0.9% NaCl; give over 2 minutes rg5 Route: IVP; Site: right antecubital; 05:48 Follow up: Response: No adverse reaction rg5 05:14 Drug: metroNIDAZOLE IVPB 500 mg 100 ml IVPB at 200 ml/hr once over 30 mins Volume: 100 rg5 ml; Route: IVPB; Rate: 200 ml/hr; Infused Over: 30 mins; Site: right antecubital; 05:47 Follow up: IV Status: Completed infusion; IV Intake: 100ml rg5 05:47 Drug: Ondansetron IVP 4 mg IVP once; over 2 minutes Route: IVP; Site: right antecubital;rg5 05:48 Follow up: Response: No adverse reaction; Pain is decreased rg5 05:47 Drug: Alum-Mag Hydroxide-Simeth PO Suspension (200 mg-200 mg-20 mg/5 mL) 30 ml PO once rg5 Route: PO; 05:48 Follow up: Response: No adverse reaction; Pain is decreased rg5 Disposition: 04/30 03:02 Chart complete. sp4 Disposition Summary: 04/29/24 07:34 Discharge Ordered Notes: We recommend clear liquids only for 24 hours Location: Home sp4 Problem: new sp4 Symptoms: have improved sp4 Condition: Stable sp4 Diagnosis - Pyelonephritis acute sp4 - UTI/ Urinary tract infection, site not specified sp4 - Nausea with vomiting, unspecified sp4 Followup: sp4 - With: Private Physician - When: 7 - 10 days - Reason: Recheck today's complaints Discharge Instructions: - Discharge Summary Sheet sp4 - Pyelonephritis, Adult, [id number] sp4 - Clear Liquid Diet, Adult, [id number] sp4 Forms: - Patient Portal Instructions sp4 Prescriptions: - ondansetron 8 mg Oral Tablet,disintegrating - take 1 tablet ORAL route every 6 hours PRN nausea; 30 tablet; Refills: 0, sp4 Product Selection Permitted - Cephalexin 500 mg Oral Capsule - take 1 capsule ORAL route every 8 hours for 10 days; 30 capsule; Refills: 0, sp4 Product Selection Permitted - Ibuprofen 800 mg Oral Tablet - take 1 tablet ORAL route every 8 hours As needed take with food; 30 tablet; sp4 Refills: 0, Product Selection Permitted Signatures: Dispatcher [employer] Zoe Garibay RN Milan Wiseman MD MD sp4 Erick Milner RN RN rg5 Marielena Hernandez RN ko1
--- NOTE | 2024-04-29 07:35 | ER ---
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 Coronavirus screen: Vaccine status: Patient reports receiving the 2nd dose of the covid vaccine. Ebola Screen: Patient negative for fever greater than or equal to 101.5 degrees Fahrenheit, and additional compatible Ebola Virus Disease symptoms. Initial Sepsis Screen: Does the patient meet any 2 criteria? HR > 90 bpm. Does the patient have a suspected source of infection? If YES to both, name of provider notified: Milan Doe MD. Risk Assessment: Do you want to hurt yourself or someone else? Patient reports no desire to harm self or others. Onset of symptoms was April 26, 2024. 04:10 Method Of Arrival: Ambulatory 04:10 Acuity: FEDE 3 kl Triage Assessment: 04:13 General: Appears uncomfortable, Behavior is calm, cooperative. Pain: Complains of pain kl in generalized body aches Pain currently is 9 out of 10 on a pain scale. Noted to be grimacing. EENT: No deficits noted. Neuro: No deficits noted. Cardiovascular: Rhythm is sinus tachycardia. Respiratory: No deficits noted. GI: No deficits noted. : Reports pain flank(s). Historical: - Allergies: 04:12 No Known Allergies; kl - Home Meds: 04:12 Azo-Standard Oral [Active]; Acetaminophen Oral [Active]; kl - PMHx: 04:12 Asthma; kl - PSHx: 04:12 None; kl - Immunization history:: Adult Immunizations not immunized. - Infectious Disease History:: Denies. - Social history:: Smoking status: Reported history of juuling and/or vaping. - Family history:: not pertinent. Screenin:15 [facility] ED Fall Risk Assessment (Adult) History of falling in the last 3 months, ko1 including since admission No falls in past 3 months (0 pts) Confusion or Disorientation No (0 pts) Intoxicated or Sedated No (0 pts) Impaired Gait No (0 pts) Mobility Assist Device Used No (0 pt) Altered Elimination No (0 pt) Score/Fall Risk Level 0 - 2 = Low Risk Oriented to surroundings, Maintained a safe environment, Educated pt \T\ family on fall prevention, incl call for assistance when getting out of bed, Assessed \T\ reinforced patient's understanding of fall precautions, Hourly rounding (assess needs \T\ fall precautionary measures) done. Abuse screen: Denies threats or abuse. Denies injuries from another. Nutritional screening: No deficits noted. Tuberculosis screening: No symptoms or risk factors identified. Assessment: 07:15 General: Appears in no apparent distress. Behavior is calm, cooperative, appropriate ko1 for age. Pain: Denies pain. Neuro: Level of Consciousness is awake, alert, obeys commands, Oriented to person, place, time, situation, Appropriate for age. Cardiovascular: No deficits noted. Respiratory: No deficits noted. GI: No deficits noted. No signs and/or symptoms were reported involving the gastrointestinal system. : Reports pain in lower back. EENT: No deficits noted. Derm: No deficits noted. Musculoskeletal: No deficits noted. 18:25 Reassessment: Lab reports positive blood culture in aerobic bottle x 1 with g+ cocci in hb pairs. Spoke to mother on phone [phone], Bactrim DS BID x 7 days called into [facility] for Dr. Prieto. Vital Signs: 04:10 BP 121 / 48; Pulse 130; Resp 20; Temp 100.2(O); Pulse Ox 98% on R/A; Weight 113.4 kg kl (R); Height 5 ft. 2 in. ; Pain 9/10; 05:16 BP 111 / 72; Pulse 110; Resp 18; Temp 99(O); Pulse Ox 99% on R/A; Pain 8/10; rg5 06:41 BP 94 / 59; Pulse 80; Resp 17; Pulse Ox 100% on R/A; Pain 0/10; rg5 07:48 BP 115 / 68; Pulse 78; Resp 16; Pulse Ox 99% ; ko1 04:10 Body Mass Index 45.73 (113.40 kg, 157.48 cm) kl 04:10 Pain Scale: Adult kl 05:16 Pain Scale: Adult rg5 06:41 Pain Scale: Adult rg5 Yves Coma Score: 07:32 Eye Response: spontaneous(4). Motor Response: obeys commands(6). Verbal Response: sp4 oriented(5). Total: 15. ED Course: 03:59 Patient arrived in ED. gm2 04:08 Milan Doe MD is Attending Physician. sp4 04:12 Triage completed. kl 04:17 Erick Milner, RN is Primary Nurse. rg5 04:34 EKG done, by ED staff, reviewed by Milan Doe MD. kd3 04:35 EKG done, by coroner transport technician. af3 04:35 Inserted saline lock: 20 gauge in right antecubital area, using aseptic technique. af3 Blood collected. Flushed with 10 mL NS. 05:16 CT Chest Abdomen Pelvis W/O Contrast In Process Unspecified. EDMS 07:15 Patient requests rest room assistance. ko1 07:15 No provider procedures requiring assistance completed. ko1 07:15 Patient has correct armband on for positive identification. Bed in low position. Call ko1 light in reach. Side rails up X2. Provided Education on: meds. Client placed on continuous cardiac and pulse oximetry monitoring. NIBP monitoring applied. court recording monitor on. Door closed. Noise minimized. Lights dimmed. Warm blanket given. Pillow given. Assisted to bathroom. 07:15 Arm band placed on right wrist. ko1 07:49 IV discontinued, intact, bleeding controlled, No redness/swelling at site. Pressure ko1 dressing applied. Administered Medications: 04:36 Drug: NS 0.9% IV (30 ml/kg) 30 ml/kg IV at bolus once; Sepsis Protocol; to be given as kl a bolus over 90 minutes Route: IV; Rate: bolus; Site: right antecubital; 07:30 Follow up: Response: No adverse reaction; IV Status: Completed infusion; IV Intake: ko1 2000ml 04:36 Drug: Ondansetron IVP 4 mg IVP once; over 2 minutes Route: IVP; Site: right antecubital;kl 05:48 Follow up: Response: No adverse reaction rg5 04:38 Drug: Rocephin - Rocephin (cefTRIAXone) IVPB 1 grams IVPB once over 30 mins; (mix in 50 kl mL NS) Route: IVPB; Infused Over: 30 mins; Site: right antecubital; 05:15 Follow up: IV Status: Completed infusion; IV Intake: 100ml rg5 04:47 Drug: Ibuprofen PO 800 mg PO once Route: PO; rg5 05:15 Follow up: Response: No adverse reaction; Pain is decreased rg5 04:55 Drug: metoCLOPramide IVP 10 mg IVP once; over 1 to 2 minutes Route: IVP; Site: right rg5 antecubital; 05:48 Follow up: Response: No adverse reaction rg5 05:00 Drug: Ketorolac IVP 30 mg IVP once Route: IVP; Site: right antecubital; rg5 05:48 Follow up: Response: No adverse reaction; Pain is decreased rg5 05:00 Drug: Famotidine IVP 20 mg IVP once; dilute with 10 mL 0.9% NaCl; give over 2 minutes rg5 Route: IVP; Site: right antecubital; 05:48 Follow up: Response: No adverse reaction rg5 05:14 Drug: metroNIDAZOLE IVPB 500 mg 100 ml IVPB at 200 ml/hr once over 30 mins Volume: 100 rg5 ml; Route: IVPB; Rate: 200 ml/hr; Infused Over: 30 mins; Site: right antecubital; 05:47 Follow up: IV Status: Completed infusion; IV Intake: 100ml rg5 05:47 Drug: Ondansetron IVP 4 mg IVP once; over 2 minutes Route: IVP; Site: right antecubital;rg5 05:48 Follow up: Response: No adverse reaction; Pain is decreased rg5 05:47 Drug: Alum-Mag Hydroxide-Simeth PO Suspension (200 mg-200 mg-20 mg/5 mL) 30 ml PO once rg5 Route: PO; 05:48 Follow up: Response: No adverse reaction; Pain is decreased rg5 Medication: 07:48 VIS not applicable for this client. ko1 Intake: 05:15 IV: 100ml; Total: 100ml. rg5 05:47 IV: 100ml; Total: 200ml. rg5 07:30 IV: 2000ml; Total: 2200ml. ko1 Outcome: 07:34 Discharge ordered by MD. sp4 07:49 Discharged to home ambulatory, ko1 07:49 Condition: good 07:49 Discharge instructions given to patient, Instructed on discharge instructions, follow up and referral plans. medication usage, Demonstrated understanding of instructions, follow-up care, medications, Prescriptions given X 3, 07:50 Patient left the ED. ko1 Signatures: Dispatcher [employer] EDMS Zoe Escalona, ISATU LUNSFORD Christie Nolasco RN RN Carin Carrizales RN RN 3 Marielena Hernandez RN RN ko1 Milan Doe MD MD sp4 Albertina Hernadez 2 Erick Milner RN RN rg5 Elsa Gary 3 Corrections: (The following items were deleted from the chart) 07:11 05:16 BP 111 / 72; Pulse 110bpm; Resp 18bpm; Pulse Ox 99% RA; Pain 8/10, Adult; rg5 rg5
[2024-04-29 08:10] VITALS: TEMP 99
[2024-04-29 08:17] VITALS: BP 115/68; O2SAT 99
--- NOTE | 2024-04-30 15:43 | EKG ---
Test Date: 2024-04-29 Test Time: 04:32:04 Dog Breeder: RENATO MEASUREMENT RESULTS: Intervals: Rate: 112 PA: 130 QRSD: 82 QT: 314 QTc: 428 [place]: P: 46 PA: 130 QRS: 57 T: 34 INTERPRETIVE STATEMENTS: Sinus tachycardia Nonspecific T wave abnormality Abnormal ECG No previous ECG available for comparison Electronically Signed On 04-30-24 15:40:38 LOGISTICS ASSOCIATE by Stuart Ragsdale
== END 2024-04-29 07:50 | disposition home or self-care (01) ==
LOC: ER 03:56
DX: N10 Acute pyelonephritis (principal); N39.0 Urinary tract infection, site not specified; R11.2 Nausea with vomiting, unspecified
CPT/HCPCS: 36415; 71250; 74176; 80053; 81001; 81025; 83605; 85025; 85610; 85730; 87040; 87077; 87086; 87088; 87186; 87205; 93005; 96365; 96367; 96375; 99285; J0696; J2405; J2765; J7030

== ENCOUNTER 2024-09-07 17:25 | Emergency (ER) | payer SELFPAY ==
--- OUTSIDE RECORDS SUMMARY | 2024-09-07 17:29 | XMS REPORT | Continuity of Care Document ---
Author Name Unknown Address [address] [place] [address] [address] [place] [address] [facility] Address [address] [facility]. 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 Role Phone KRIS VELASQUEZ Primary Care Physician Unavail le Doctor Unassigned, [place] Attending Clinician U Victor M Fajardo MD [...] active problems No known active problems Disease [facility] Allergies, Adverse Reactions, Alerts Allergy Name Allergy Type Status Severity Reaction(s) Onset Date Inactive Date Treating Clinician Comments Source NO KNOWN ALLERGIE S Drug Class Active [facility] Social History Social Habit Start Date Stop Date Quantity Comments Source Exposure to SARS-CoV-2 (event) Not sure [facility] Tobacco use and exposure 2021-08-01 00:00:00 2021-08-01 00:00:00 Never used [facility] Sex Assigned At 1995 00:00:00 1995 00:00:00 [facility] Smoking Status Start Date Stop Date Source Never smoker [facility] Medications Ordered Medication Name Filled Medication Name Start Date Stop Date Current Medication? Ordering Clinician Indication Dosage Frequency Signature (SIG) Comments Components Source cariprazine (VRAYLAR) 3 mg Cap 09-05 14:37: 33 Yes Vraylar 3 mg capsule Take 1 capsule every day by oral route. [facility] ketorolac (TORADOL) injection 30 mg 08-01 16:00: 00 08-01 15:33 :00 No [id number] [facility] ([facility]LAR) 3 mg Cap 08-01 09:47: 12 Yes Vraylar 3 mg capsule Take 1 capsule every day by oral route. [facility] methocarbam oL 500 mg tablet 08-01 00:00: 00 Yes [id number] 500mg Take 1 tablet by mouth 4 (four) times daily. [facility] gabapentin 100 mg capsule 08-01 00:00: 00 Yes [id number] 100mg Take 1 capsule by mouth 3 (three) times daily. [facility] busPIRone 5 mg tablet 07-13 00:00: 00 Yes [facility] Vital Signs Vital Name Observation Time Observation Value Comments S our Systolic blood pressure 2021-08-01 14:31:00 124 mm[Hg] [facility] Diastolic blood pressure 2021-08-01 14:31:00 84 mm[Hg] [facility] Heart rate 2021-08-01 14:31:00 105 /min [facility] Body temperature 2021-08-01 14:31:00 37.22 Toya [facility] Respiratory rate 2021-08-01 14:31:00 18 /min [facility] Body height 2021-08-01 14:31:00 165.1 cm [facility] Body weight 2021-08-01 14:31:00 105.325 kg [facility] BMI 2021-08-01 14:31:00 38.64 kg/m2 [facility] Oxygen saturation in Arterial blood by Pulse oximetry 2021-08-01 14:31:00 100 /min [facility] Procedures Procedure Date / Time Performed Performing Clinician Source AUTHORIZATION FOR RELEASE OF PHI 2021-09-12 05:01:00 Doctor Unassigned, [place] [facility] XR SACRUM AND COCCYX 2021-08-01 15:20:00 Victor M Rivera [facility] XR LUMBAR SPINE 2 VW 2021-08-01 15:20:00 Victor M Rivera [facility] POCT TEST 2021-08-01 14:58:00 [facility] 2021-08-01 14:57:00 Victor M Rivera [facility] Encounters Start Date/Time End Date/Time Encounter Type Admission Type Attending Clinicians Care Facility Care Department Encounter ID Source 2021-09-12 00:00:00 2021-09-12 00:00:00 Orders Only Doctor Unassigned, [place] [facility] [id number] [facility] 2021-09-04 00:00:00 2021-09-04 00:00:00 Telephone Christiano [facility] [id number] [facility] 2021-08-15 10:15:00 2021-08-15 10:15:00 Outpatient NHI [facility] [id number] [facility] 2021-08-15 10:15:00 2021-08-15 10:15:00 Outpatient NHI [facility] [id number] [facility] 2021-08-01 09:44:43 2021-08-01 23:59:00 Hospital Encounter Christiano [facility] [id number] [facility] 2021-08-01 09:44:42 2021-08-01 23:59:00 Outpatient R VICTOR M RIVERA [facility] [id number] [facility] 2021-08-01 09:44:42 2021-08-01 23:59:00 [facility] [id number] [facility] 2021-08-01 09:40:00 2021-08-01 09:52:07 Urgent Care Victor M Rivera, Alondra [facility] [id number] [facility] Results Test Description Test Time Test Comments Results Result Co mments Source [facility] SPECIFIC [id number] 14:57:00* Test Item Value Reference Range Interpretation [...] internal controls Lab Interpretation (test code = 44846-0) Abnormal [facility]
[2024-09-07 18:19] LABS: Influenza A Ag Negative; Influenza B Ag Negative; SARS-CoV-2 Antigen Rapid Res Negative (Negative)
--- NOTE | 2024-09-07 18:30 | RAD REPORT ---
EXAM: Chest Pa And Lat (2 Views) HISTORY: 28 years Female Chest pain;Congestion;Cough COMPARISON: 05/02/2023 FINDINGS: LUNGS/PLEURA: The lungs are clear. No pleural effusions or pneumothorax. No pulmonary edema. CARDIAC/MEDIASTINUM: The cardiac silhouette is within normal limits. UPPER ABDOMEN: No significant abnormality. BONES: No acute abnormality. LINES/TUBES/OTHER: N/A IMPRESSION: No evidence of acute cardiopulmonary disease. No significant change from prior.
[2024-09-07] MEDS ORDERED: ONDANSETRON 4 MG/2 ML VIAL ONE (19:38)
[2024-09-07] MEDS ORDERED: KETOROLAC 30 MG/ML INJ ONE (19:39)
[2024-09-07] MEDS ORDERED: NA CHLORIDE 0.9% 1,000 ML ONE (19:39)
[2024-09-07] MEDS ORDERED: HYDROCODONE/CHLORPHEN 5 ML/OSYR ONE (20:02)
[2024-09-07] MEDS ORDERED: hydrOXYzine HCL 25 MG TAB ONE (20:16)
[2024-09-07 20:32] LABS: Absolute Lymphocytes (CBC) 1.2 K/uL (0.7-4.9); Absolute Monocytes 0.8 K/uL (0.1-1.3); Absolute Neutrophil 5.7 K/uL (1.8-8.0); Basophils % 0.3 % (0-1.3); Eosinophils % 0.5 % (0-4.4); Hematocrit 33.2 % (36.0-45.0); Hemoglobin 11.2 g/dL (12.0-15.0); Lymphocytes % 14.9 % (15.3-44.8); MCH 24.8 pg (27.0-35.0); MCHC 33.6 g/dL (32.0-36.0); MCV 73.9 fL (80-100); MPV 10.8 fL (7.6-11.3); Monocytes % 10.9 % (3.3-12.3); Neutrophils % 73.4 % (41.7-73.7); Nucleated Red Blood Cells % 0.3 % (0-0); Platelets 154 thou/uL (152-406); Red Cell Distribution Width 18.4 % (12.1-15.2)
[2024-09-07 21:03] LABS: Albumin 3.1 g/dL (3.4-5.0); Albumin/Globulin Ratio 0.7 (1.1-1.8); Alkaline Phosphatase 60 U/L (45-117); Anion Gap 9.9 mEq/L (5.0-15.0); BUN Blood Urea Nitrogen 4 mg/dL (7-18); Bicarbonate 23 mEq/L (21-32); Bilirubin Total 0.3 mg/dL (0.2-1.0); Globulin 4.7 g/dL (2.3-3.5); Glomerular Filtration Rate 129 ml/min (=/>90); Glucose Level 81 mg/dL (74-106); Lipase 22 U/L (13-75); Potassium 3.9 mEq/L (3.5-5.1); Protein, Total 7.8 g/dL (6.4-8.2); Sodium Level 134 mEq/L (136-145)
[2024-09-07 21:04] LABS: ALT/SGPT < 14 U/L (13-56); AST/SGOT < 10 U/L (15-37)
[2024-09-07 21:16] LABS: Monoscreen POS (NEG)
--- NOTE | 2024-09-07 21:30 | ER ---
Nurse's Notes [facility] Name: Nguyen Patel Age: 28 yrs Sex: Female : 1995 Arrival Date: 09/07/2024 Time: 17:25 Bed 11 Private MD: Diagnosis: Other infectious mononucleosis without complication Presentation: 09/07 17:39 Chief complaint: Patient states: Nausea, Vomiting, Cough, fatigue X 2-3 days. ld1 Coronavirus screen: At this time, the client does not indicate any symptoms associated with coronavirus-19. Ebola Screen: No symptoms or risks identified at this time. Initial Sepsis Screen: Does the patient meet any 2 criteria? No. Patient's initial sepsis screen is negative. Does the patient have a suspected source of infection? No. Patient's initial sepsis screen is negative. Risk Assessment: Do you want to hurt yourself or someone else? Patient reports no desire to harm self or others. Onset of symptoms was September 07, 2024. 17:39 Method Of Arrival: Ambulatory ld1 17:39 Acuity: FEDE 3 ld1 Triage Assessment: 17:40 General: Appears in no apparent distress. comfortable, Behavior is calm, cooperative, ld1 appropriate for age. Pain: Denies pain. EENT: No signs and/or symptoms were reported regarding the EENT system. Neuro: Level of Consciousness is awake, alert, obeys commands, Oriented to person, place, time, situation. Cardiovascular: Capillary refill < 3 seconds Patient's skin is warm and dry. Respiratory: Airway is patent Respiratory effort is even, unlabored. GI: Abdomen is round non-distended. : No signs and/or symptoms were reported regarding the genitourinary system. Derm: No signs and/or symptoms reported regarding the dermatologic system. Musculoskeletal: No signs and/or symptoms reported regarding the musculoskeletal system. Historical: - Allergies: 17:40 No Known Allergies; ld1 - PMHx: 17:40 Asthma; ld1 - PSHx: 17:40 None; ld1 - Immunization history:: Adult Immunizations up to date. - Infectious Disease History:: Denies. - Social history:: Smoking status: Patient denies any tobacco usage or history of. Patient/guardian denies using alcohol. Screenin:30 [facility] ED Fall Risk Assessment (Adult) History of falling in the last 3 months, vc1 including since admission No falls in past 3 months (0 pts) Confusion or Disorientation No (0 pts) Intoxicated or Sedated No (0 pts) Impaired Gait No (0 pts) Mobility Assist Device Used No (0 pt) Altered Elimination No (0 pt) Score/Fall Risk Level 0 - 2 = Low Risk Oriented to surroundings, Maintained a safe environment, Educated pt \T\ family on fall prevention, incl call for assistance when getting out of bed, Assessed \T\ reinforced patient's understanding of fall precautions, Hourly rounding (assess needs \T\ fall precautionary measures) done. Abuse screen: Denies threats or abuse. Nutritional screening: No deficits noted. Tuberculosis screening: No symptoms or risk factors identified. Assessment: 22:29 Reassessment: Patient and/or family updated on plan of care and expected duration. Pain vc1 level reassessed. Patient is alert, oriented x 3, equal unlabored respirations, skin warm/dry/pink. Patient states feeling better. Patient states symptoms have improved. General: Appears in no apparent distress. uncomfortable, ill. Vital Signs: 17:39 BP 128 / 82; Pulse 97; Resp 18; Temp 97.7(TE); Pulse Ox 97% on R/A; Height 5 ft. 2 in. ld1 ; Pain 0/10; 22:29 BP 124 / 80; Pulse 92; Resp 18; Pulse Ox 98% ; vc1 17:39 Pain Scale: Adult ld1 ED Course: 17:28 Patient arrived in ED. im 17:29 Ren[facility]C [facility] sb4 17:29 Ten Girard DO is Attending Physician. sb4 17:40 Triage completed. ld1 17:40 Arm band placed on right wrist. ld1 17:47 COVID-19 Ag + Flu A+B Ag Sent. ld1 18:01 COVID-19 Ag + Flu A+B Ag Sent. ld1 18:27 Chest Pa And Lat (2 Views) XRAY In Process Unspecified. EDMS 20:26 Lisa Israel, ISATU is Primary Nurse. vc1 20:26 CBC with Diff Sent. vc1 20:26 CMP Sent. vc1 20:26 Lipase Sent. vc1 22:30 Assist provider with reduction of right hand. IV discontinued, intact, bleeding vc1 controlled, No redness/swelling at site. Pressure dressing applied. 22:33 Patient has correct armband on for positive identification. Provided Education on: vc1 contagious, wear a mask. Administered Medications: 20:26 Drug: Ondansetron IVP 4 mg IVP once; over 2 minutes Route: IVP; Site: right antecubital;vc1 22:34 Follow up: Response: No adverse reaction; Marked relief of symptoms vc1 20:26 Drug: NS 0.9% IV 1000 ml IV at 1 bolus Per protocol; to be given as a bolus over 60 vc1 minutes Route: IV; Rate: 1 bolus; Site: right antecubital; 22:34 Follow up: IV Status: Completed infusion; IV Intake: 300ml vc1 20:26 Drug: Tussionex Pennkinetic ER PO Suspension 5 ml PO once Route: PO; vc1 22:33 Follow up: Response: No adverse reaction; Marked relief of symptoms vc1 20:27 Drug: TORadol - Ketorolac IVP 15 mg IVP once Route: IVP; Site: right antecubital; vc1 22:34 Follow up: Response: No adverse reaction; Marked relief of symptoms vc1 20:30 Drug: hydrOXYzine PO 25 mg PO once Route: PO; vc1 22:33 Follow up: Response: No adverse reaction; Marked relief of symptoms vc1 21:22 CANCELLED (Other Intervention Used): [id number] mg PO once vc1 Medication: 22:29 VIS not applicable for this client. vc1 Intake: 22:34 IV: 300ml; Total: 300ml. vc1 Outcome: 21:30 Discharge ordered by . sb4 22:31 Discharged to home ambulatory, vc1 22:31 Condition: stable 22:31 Discharge instructions given to patient, Instructed on discharge instructions, follow up and referral plans. medication usage, Demonstrated understanding of instructions, follow-up care, medications, Prescriptions given X 3, 22:33 Patient left the ED. vc1 Signatures: Dispatcher [employer] EDMS Yessy Girard RN RN ld1 Lisa Israel RN RN vc1 Renetta Kyle, PASandraC PADamon [email or web address] Daphnie Nguyen Corrections: (The following items were deleted from the chart) 17:41 17:39 Chief complaint: Patient states: Nausea, Vomiting, Cough, fatigue X 2-3 days ld1 ld1 17:52 17:39 Acuity: FEDE 4 ld1 ld1 21:22 20:26 Hydrochlorothiazide PO 25 mg PO vc1 vc1
--- NOTE | 2024-09-07 21:30 | EDPHYS ---
Physician Documentation [facility] Name: Nguyen Patel Age: 28 yrs Sex: Female : 1995 Arrival Date: 09/07/2024 Time: 17:25 Bed 11 Private MD: ED Physician Ten Girard HPI: 09/07 19:30 This 28 yrs old Female presents to ER via Ambulatory with complaints of Flu Symptoms. sb4 19:30 Patient reports nausea, vomiting, fatigue, cough x 3 days. Works at a [employer]. sb4 Denies any diarrhea. Noted to be very irritable and agitated during triage. Denies any chance of as she is not sexually active. Denies any chronic medical problems, has never had her thyroid checked. Is not on any daily medications. Denies any chest pain or shortness of breath. Historical: - Allergies: 17:40 No Known Allergies; ld1 - PMHx: 17:40 Asthma; ld1 - PSHx: 17:40 None; ld1 - Immunization history:: Adult Immunizations up to date. - Infectious Disease History:: Denies. - Social history:: Smoking status: Patient denies any tobacco usage or history of. Patient/guardian denies using alcohol. ROS: 19:30 Cardiovascular: Negative for chest pain, palpitations, and edema, sb4 19:30 Constitutional: Positive for fatigue, fever, malaise, 19:30 Respiratory: Positive for cough, 19:30 Abdomen/GI: Positive for nausea and vomiting, 19:30 All other systems are negative, Exam: 19:32 Head/Face: Normocephalic, atraumatic. Eyes: Extra-ocular motions intact. Periorbital sb4 areas with no swelling, redness, or edema. ENT: Mucous membranes moist. Cardiovascular: Regular rate and rhythm with a normal S1 and S2. Respiratory: No increased work of breathing, no retractions or nasal flaring. Abdomen/GI: Soft, non-tender, no distension. Skin: Warm, dry with normal turgor. Normal color with no rashes, no lesions, and no evidence of cellulitis. 19:32 Constitutional: The patient appears in no acute distress, alert, awake, agitated, 19:32 Psych: Behavior/mood is angry, Vital Signs: 17:39 BP 128 / 82; Pulse 97; Resp 18; Temp 97.7(TE); Pulse Ox 97% on R/A; Height 5 ft. 2 in. ld1 ; Pain 0/10; 22:29 BP 124 / 80; Pulse 92; Resp 18; Pulse Ox 98% ; vc1 17:39 Pain Scale: Adult ld1 MDM: 17:30 Medical Screening Exam initiated sb4 21:42 Data reviewed: vital signs, nurses notes, lab test result(s), radiologic studies, and sb4 as a result, I will discharge patient. Counseling: I had a detailed discussion with the patient and/or guardian regarding the historical points, exam findings, and any diagnostic results supporting the discharge/admit diagnosis, lab results, radiology results, the need for outpatient follow up, for definitive care, to return to the emergency department if symptoms worsen or persist or if there are any questions or concerns that arise at home. 09/07 17:45 Order name: COVID-19 Ag + Flu A+B Ag; Complete Time: 18:23 iw 09/07 17:52 Order name: CBC with Diff; Complete Time: 20:45 sb4 09/07 17:52 Order name: CMP; Complete Time: 21:04 sb4 09/07 17:52 Order name: Lipase; Complete Time: 21:04 sb4 09/07 17:52 Order name: TSH; Complete Time: 21:04 sb4 09/07 17:53 Order name: [place] Screen Profile; Complete Time: 21:19 sb4 09/07 17:52 Order name: Chest Pa And Lat (2 Views) XRAY; Complete Time: 18:31 sb4 09/07 17:52 Order name: IV Saline Lock; Complete Time: 20:26 sb4 09/07 17:52 Order name: Labs collected and sent; Complete Time: 20:26 sb4 Administered Medications: 20:26 Drug: Ondansetron IVP 4 mg IVP once; over 2 minutes Route: IVP; Site: right antecubital;vc1 22:34 Follow up: Response: No adverse reaction; Marked relief of symptoms vc1 20:26 Drug: NS 0.9% IV 1000 ml IV at 1 bolus Per protocol; to be given as a bolus over 60 vc1 minutes Route: IV; Rate: 1 bolus; Site: right antecubital; 22:34 Follow up: IV Status: Completed infusion; IV Intake: 300ml vc1 20:26 Drug: Tussionex Pennkinetic ER PO Suspension 5 ml PO once Route: PO; vc1 22:33 Follow up: Response: No adverse reaction; Marked relief of symptoms vc1 20:27 Drug: TORadol - Ketorolac IVP 15 mg IVP once Route: IVP; Site: right antecubital; vc1 22:34 Follow up: Response: No adverse reaction; Marked relief of symptoms vc1 20:30 Drug: hydrOXYzine PO 25 mg PO once Route: PO; vc1 22:33 Follow up: Response: No adverse reaction; Marked relief of symptoms vc1 21:22 CANCELLED (Other Intervention Used): [id number] mg PO once vc1 Disposition Summary: 09/07/24 21:30 Discharge Ordered Notes: Location: Home sb4 Problem: new sb4 Symptoms: have improved sb4 Condition: Stable sb4 Diagnosis - Other infectious mononucleosis without complication sb4 Followup: sb4 - With: Private Physician - When: 1 week - Reason: Recheck today's complaints, Re-evaluation by your physician Discharge Instructions: - Discharge Summary Sheet sb4 - Infectious Mononucleosis, Lebl-sx-Smip sb4 Forms: - Work release form sb4 - Patient Portal Instructions sb4 - Leadership Thank You Letter sb4 Prescriptions: - Hydroxyzine HCl 25 mg Oral Tablet - take 1 tablet ORAL route every 6 hours As needed; 30 tablet; Refills: 0, sb4 Product Selection Permitted - Tessalon Perles 100 mg Oral capsule - take 2 capsule ORAL route every 8 hours As needed; 30 capsule; Refills: 0, sb4 Product Selection Permitted - ondansetron 8 mg Oral Tablet,disintegrating - take 1 tablet ORAL route every 8 hours; 10 tablet; Refills: 0, Product sb4 Selection Permitted Signatures: 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 EDMS EDMS 17:53 17:52 CBC+H.LAB.BRZ ordered. EDMS EDMS 17:53 17:52 COMPREHENSIVE METABOLIC PANEL+C.LAB.BRZ ordered. EDMS EDMS 17:53 17:52 LIPASE+C.LAB.BRZ ordered. EDMS EDMS 17:53 17:52 Test, Urine+UC.LAB.BRZ ordered. EDMS EDMS 17:53 17:52 Urinalysis+U.LAB.BRZ ordered. EDMS EDMS 17:53 17:52 THYROID STIMULAT HORMONE+C.LAB.BRZ ordered. EDMS EDMS 21:22 20:14 Hydrochlorothiazide PO 25 mg PO once ordered. sb4 vc1 21:22 20:26 Hydrochlorothiazide PO 25 mg PO once given. vc1 vc1 21:22 21:22 Hydrochlorothiazide PO 25 mg PO once ordered. vc1 vc1
[2024-09-08 09:10] VITALS: TEMP 97.7
[2024-09-08 09:11] VITALS: BP 124/80; O2SAT 98
== END 2024-09-07 22:33 | disposition home or self-care (01) ==
LOC: ER 17:25
DX: B27.80 Other infectious mononucleosis without complication (principal); Z11.52 Encounter for screening for COVID-19
CPT/HCPCS: 36415; 71046; 80053; 83690; 84443; 85025; 86308; 87428; J2405; J7030